=== PATIENT | male | born 2000 | race Caucasian/White ===

== ENCOUNTER 2022-02-12 22:41 | Emergency (ER) | payer MEDICAID, SELFPAY ==
[2022-02-12 22:46] VITALS: BP 152/81; PULSE 86; RESP 18; TEMP 36.8; O2SAT 96; BMI 32.9
--- NOTE | 2022-02-12 22:55 | ED.MALEGU ---
HPI - Male Genitourinary General Time Seen by Provider: 22:56 <Keely Duong MD - Last Filed: 02/12/22 23:10> Date Seen: 02/12/22 <Keely Duong MD - Last Filed: 02/12/22 23:10> Chief complaint: Urogenital Problems, Male <Keely Duong MD - Last Filed: 02/12/22 23:10> Stated complaint: sharp pain <Keely Duong MD - Last Filed: 02/12/22 23:10> Time Seen by Provider: 02/12/22 22:43 <Keely Duong MD - Last Filed: 02/12/22 23:10> Source: patient and RN notes reviewed <Keely Duong MD - Last Filed: 02/12/22 23:10> Mode of arrival: ambulatory <Keely Duong MD - Last Filed: 02/12/22 23:10> Limitations: no limitations <Keely Duong MD - Last Filed: 02/12/22 23:10> History of Present Illness HPI Narrative: Patient is a 21-year-old male coming in with left testicular pain that has been with him all day. It has been quite severe today. He felt a little lightheaded earlier at work but he thinks it was because of the pain. Proceeding today, he had a period where was a little sore for a few days, thought maybe the left testicle was riding a little lower than his right. He has had no fevers or chills. He is sometimes sexually active with his female partner that is here with him. He has never been diagnosed with an STI. He has noted no change in urination, no hematuria. He had a few days were it was not bothering him and notes today the pain really came back more severe. He feels it might be swollen. <Keely Duong MD - Last Filed: 02/12/22 23:10> MD Complaint: testicle pain <Keely Duong MD - Last Filed: 02/12/22 23:10> Related Data Sexually active: Yes <Keely Duong MD - Last Filed: 02/12/22 23:10> Home medications: Home Medications Medication Instructions Recorded Confirmed ibuprofen 02/12/22 sertraline 50 mg tablet mg 02/12/22 <Keely Duong MD - Last Filed: 02/12/22 23:10> Allergies/Adverse reactions: Allergies Allergy/AdvReac Type Severity Reaction Status Date / Time No Known Drug Allergies Allergy Verified 02/12/22 22:49 <Keely Duong MD - Last Filed: 02/12/22 23:10> Review of Systems Status of ROS: Reports: 6 or more systems reviewed and unremarkable except as noted in History and below <Keely Duong MD - Last Filed: 02/12/22 23:10> PFSH PFSH Social History: Social History Smoking Status: Never smoker How often do you have a drink containing alcohol: never AUDIT-C Alcohol total score: 0 Non-prescribed substance use: marijuana (any form) <Keely Duong MD - Last Filed: 02/12/22 23:10> Exam Const: Vital Signs, click to edit/add: Vital Signs - 24 hr 02/12/22 22:46 Temperature 98.3 F Pulse Rate [Left P ulse Oximeter] 86 Respiratory Rate 18 Blood Pressure [Ri ght Upper Arm] 152/81 H Pulse Oximetry 96 Oxygen Delivery Me thod Room Air <Keely Duong MD - Last Filed: 02/12/22 23:10> Vital Signs, click to edit/add: Vital Signs - 24 hr 02/12/22 22:46 Temperature 98.3 F Pulse Rate [Left P ulse Oximeter] 86 Respiratory Rate 18 Blood Pressure [Ri ght Upper Arm] 152/81 H Pulse Oximetry 96 Oxygen Delivery Me thod Room Air <Williams Yadav MD - Last Filed: 02/13/22 07:55> Documenting provider has reviewed patient's vital signs: yes <Keely Duong MD - Last Filed: 02/12/22 23:10> Common normals: no apparent distress, average body habitus, oriented x3, no limitations, healthy appearing, alert and well nourished <Keely Duong MD - Last Filed: 02/12/22 23:10> General appearance: cooperative, comfortable and well kempt <Keely Duong MD - Last Filed: 02/12/22 23:10> HENMT: Common normals: normocephalic, head/scalp atraumatic and hearing grossly normal bilaterally <Keely Duong MD - Last Filed: 02/12/22 23:10> Head and scalp: normocephalic and atraumatic <Keely Duong MD - Last Filed: 02/12/22 23:10> Eye: Common normals: PERRL, EOMs intact bilaterally, conjunctivae normal and no scleral icterus <Keely Duong MD - Last Filed: 02/12/22 23:10> Conjunctiva: conjunctiva(e) normal <Keely Duong MD - Last Filed: 02/12/22 23:10> Pupil: PERRL <Keely Duong MD - Last Filed: 02/12/22 23:10> Resp: Common normals: normal respiratory effort, no retractions, no use of accessory muscles and clear to auscultation bilaterally <Keely Duong MD - Last Filed: 02/12/22 23:10> Auscultation: clear to auscultation bilaterally <Keely Duong MD - Last Filed: 02/12/22 23:10> Cardio: Common normals: regular rate, regular rhythm, S1 normal heart sound, S2 normal heart sound, no gallops, no clicks and no murmurs <Keely Duong MD - Last Filed: 02/12/22 23:10> Rate: regular rate <Keely Duong MD - Last Filed: 02/12/22 23:10> Rhythm: regular rhythm <Keely Duong MD - Last Filed: 02/12/22 23:10> Heart sounds: S1 normal and S2 normal <Keely Duong MD - Last Filed: 02/12/22 23:10> GI: Common normals: Normal to inspection, nondistended, normoactive bowel sounds present, soft to palpation, non-tender, no hepatosplenomegaly and no masses <Keely Duong MD - Last Filed: 02/12/22 23:10> Palpation: soft and no hepatosplenomegaly <Keely Duong MD - Last Filed: 02/12/22 23:10> : Penis: normal penis and circumcised <Keely Duong MD - Last Filed: 02/12/22 23:10> Meatus: meatus normal <Keely Duong MD - Last Filed: 02/12/22 23:10> Scrotum: testes descended bilaterally and tenderness (Very tender left testicle, seems swollen) <Keely Duong MD - Last Filed: 02/12/22 23:10> Other: Left testicle is definitely more enlarged than the right and very much so tender. Does not seem like it is the epididymis but actually the testicle itself that is swollen. Cannot necessarily palpate whether there is a swelling within the testicle or if it is the whole thing that is swollen. Overlying scrotum seems normal. Right testicle is nontender, no masses. No inguinal adenopathy or masses. <Keely Duong MD - Last Filed: 02/12/22 23:10> Neuro: Common normals: oriented x3 <Keely Duong MD - Last Filed: 02/12/22 23:10> Sensorium/orientation: alert <Keely Duong MD - Last Filed: 02/12/22 23:10> Psych: Appearance: well kempt <Keely Duong MD - Last Filed: 02/12/22 23:10> Course Course Hospital Course: We will establish an IV, give him 15 mg IV Toradol and see if that is enough for making him more comfortable prior to scrotal ultrasound. He will get basic labs, will order urine testing including a urinalysis as well as random urine GC and chlamydia. Am doubtful that this is an S TIA. Seems to be more testicular in nature. Ultrasound will help define such things as orchitis or testicular mass. Ultrasound will also rule out such things as an acute early testicular torsion. Received Mr. Nails in handoff at change of shift pending ultrasound evaluation. I did speak with the electrical engineering technologist noting a heterogeneous mass on the left testicle. <Keely Duong MD - Last Filed: 02/12/22 23:10> Reevaluation(s) Reevaluation #1: Mr. Nails remained reasonably comfortable returning time in the emergency department. I did convey results of ultrasound to him <Williams Yadav MD - Last Filed: 02/13/22 07:55> Reevaluation #2: Given contact information for [facility]. We will try to help coordinate in the morning a visit there within the next couple of days <Williams Yadav MD - Last Filed: 02/13/22 07:55> Consultations Consultation #1: Spoke with radiologist Dr. Whitehead who called to obtain further information on Mr. richie garcia circumstance. Apparently there had been some trauma 2 weeks ago when a dog jumped on him. They have a number of large dogs. He did note pain at that time intermittently exacerbated with pressure or walking. Dr. Whitehead's interpretation of the ultrasound noted appearance of hematoma or at least the presence of a 2.4 cm maximal dimension heterogeneous vascular focus in the left mid testicle, cannot exclude mass. Hematoma seems less likely due to presence of vascular flow in this mass. There is a left epididymal head cyst and a small complex left hydrocele which might than be containing blood product. Is recommending soon urology consultation. <Williams Yadav MD - Last Filed: 02/13/22 07:55> Vital Signs Vital signs: Initial Vital Signs Temperature 98.3 F 02/12/22 22:46 Temperature Source Temporal Artery Scan 02/12/22 22:46 Pulse Rate 86 02/12/22 22:46 Respiratory Rate 18 02/12/22 22:46 Blood Pressure 152/81 H 02/12/22 22:46 Blood Pressure Mean 104 10 22:46 Blood Pressure Position Sitting 02/12/22 22:46 Pulse Oximetry 96 02/12/22 22:46 Oxygen Delivery Method 02/12/22 22:46 Vital Signs Temperature 98.3 F 02/12/22 22:46 Pulse Rate 86 02/12/22 22:46 Respiratory Rate 18 02/12/22 22:46 Blood Pressure 152/81 H 02/12/22 22:46 Pulse Oximetry 96 02/12/22 22:46 Oxygen Delivery Method 02/12/22 22:46 Temperature 98.3 F 02/12/22 22:46 Pulse Rate 86 02/12/22 22:46 Respiratory Rate 18 02/12/22 22:46 Blood Pressure 152/81 H 02/12/22 22:46 Pulse Oximetry 96 02/12/22 22:46 Oxygen Delivery Method 02/12/22 22:46 <Keely Duong MD - Last Filed: 02/12/22 23:10> Initial Vital Signs Temperature 98.3 F 02/12/22 22:46 Temperature Source Temporal Artery Scan 02/12/22 22:46 Pulse Rate 86 02/12/22 22:46 Respiratory Rate 18 02/12/22 22:46 Blood Pressure 152/81 H 02/12/22 22:46 Blood Pressure Mean 104 02/12/22 22:46 Blood Pressure Position Sitting 02/12/22 22:46 Pulse Oximetry 96 02/12/22 22:46 Oxygen Delivery Method 02/12/22 22:46 Vital Signs Temperature 98.3 F 02/12/22 22:46 Pulse Rate 86 02/12/22 22:46 Respiratory Rate 18 02/12/22 22:46 Blood Pressure 152/81 H 02/12/22 22:46 Pulse Oximetry 96 02/12/22 22:46 Oxygen Delivery Method 02/12/22 22:46 Temperature 98.3 F 02/12/22 22:46 Pulse Rate 86 02/12/22 22:46 Respiratory Rate 18 02/12/22 22:46 Blood Pressure 152/81 H 02/12/22 22:46 Pulse Oximetry 96 02/12/22 22:46 Oxygen Delivery Method 02/12/22 22:46 <Williams Yadav MD - Last Filed: 02/13/22 07:55> MDM - Male Genitourinary Lab Data Attestation: I reviewed the patient's lab results. <Williams Yadav MD - Last Filed: 02/13/22 07:55> Labs: Lab Results 02/12/22 02/12/22 02/12/22 Range/Units 23:10 23:10 23:20 WBC 14.67 H (4.50-11.00) K/uL RBC 5.48 (4.30-5.90) m/uL Hgb 15.9 (13.5-17.5) gm/dL Hct 47.8 (37.0-53.0) % MCV 87 (80-100) fL MCH 29 (26-34) pg MCHC 33 (32-36) gm/dL RDW Coeff of Jaime 12.7 (11.5-15.5) % Plt Count 306 (140-440) K/uL Neut % (Auto) 67.8 (42.0-72.0) % Lymph % (Auto) 24.6 (20-44) % Tarrant % (Auto) 6.1 (0.0-11.0) % Eos % (Auto) 1.0 (0.0-7.0) % Baso % (Auto) 0.2 (0.0-3.0) % Neut # (Auto) 9.90 H (1.7-7.0) K/uL Lymph # (Auto) 3.60 H (0.90-2.90) K/uL Tarrant # (Auto) 0.90 (0.00-0.90) K/UL Eos # (Auto) 0.10 (0.00-0.50) K/uL Baso # (Auto) 0.00 (0.00-0.30) K/uL Abs Immat Gran (auto) 0.04 (0.00-0.30) K/uL Sodium (135-149) mmol/L Potassium (3.6-5.1) mmol/L Chloride (96-114) mmol/L Carbon Dioxide (20-32) mmol/L BUN (5-24) mg/dL Creatinine (0.5-1.5) mg/dL Estimated Creat Clear Estimated GFR ml/min Glucose (60-115) mg/dL Calcium (8.4-10.6) mg/dL C-Reactive Protein (0.5-1.0) mg/dL Urine Color Yellow (Yellow) Urine Appearance Clear (Clear) Urine pH 6.0 (5.0-8.5) Ur Specific Stratton >= 1.030 (1.000-1.030) Urine Protein Negative (Negative) Urine Glucose (UA) Negative (Negative) Urine Ketones Negative (Negative) Urine Blood Negative (Negative) Urine Nitrite Negative (Negative) Urine Bilirubin Negative (Negative) Urine Urobilinogen 0.2 (0.2-1.0) Ur Leukocyte Esterase Negative (Negative) Urine RBC 0-2 (0-2) Urine WBC 0-2 (0-5) Ur Squamous Epith Cells None (None-Few) Urine Bacteria None (None) C.trachomatis Ampl DNA NOT DETECTED (No Detected) N.gonorrhoeae Ampl DNA NOT DETECTED (No Detected) 02/12/22 Range/Units 23:20 WBC (4.50-11.00) K/uL RBC (4.30-5.90) m/uL Hgb (13.5-17.5) gm/dL Hct (37.0-53.0) % MCV (80-100) fL MCH (26-34) pg MCHC (32-36) gm/dL RDW Coeff of Jaime (11.5-15.5) % Plt Count (140-440) K/uL Neut % (Auto) (42.0-72.0) % Lymph % (Auto) (20-44) % Tarrant % (Auto) (0.0-11.0) % Eos % (Auto) (0.0-7.0) % Baso % (Auto) (0.0-3.0) % Neut # (Auto) (1.7-7.0) K/uL Lymph # (Auto) (0.90-2.90) K/uL Tarrant # (Auto) (0.00-0.90) K/UL Eos # (Auto) (0.00-0.50) K/uL Baso # (Auto) (0.00-0.30) K/uL Abs Immat Gran (auto) (0.00-0.30) K/uL Sodium 142 (135-149) mmol/L Potassium 4.2 (3.6-5.1) mmol/L Chloride 103 (96-114) mmol/L Carbon Dioxide 26 (20-32) mmol/L BUN 16 (5-24) mg/dL Creatinine 0.8 (0.5-1.5) mg/dL Estimated Creat Clear 137.71 Estimated GFR 130 ml/min Glucose 101 (60-115) mg/dL Calcium 10.0 (8.4-10.6) mg/dL C-Reactive Protein 0.8 (0.5-1.0) mg/dL Urine Color (Yellow) Urine Appearance (Clear) Urine pH (5.0-8.5) Ur Specific Strat[place] (1.000-1.030) Urine Protein (Negative) Urine Glucose (UA) (Negative) Urine Ketones (Negative) Urine Blood (Negative) Urine Nitrite (Negative) Urine Bilirubin (Negative) Urine Urobilinogen (0.2-1.0) Ur Leukocyte Esterase (Negative) Urine RBC (0-2) Urine WBC (0-5) Ur Squamous Epith Cells (None-Few) Urine Bacteria (None) C.trachomatis Ampl DNA (No Detected) N.gonorrhoeae Ampl DNA (No Detected) <Keely Duong MD - Last Filed: 02/12/22 23:10> Lab Results 02/12/22 02/12/22 02/12/22 Range/Units 23:10 23:10 23:20 WBC 14.67 H (4.50-11.00) K/uL RBC 5.48 (4.30-5.90) m/uL Hgb 15.9 (13.5-17.5) gm/dL Hct 47.8 (37.0-53.0) % MCV 87 (80-100) fL MCH 29 (26-34) pg MCHC 33 (32-36) gm/dL RDW Coeff of Jaime 12.7 (11.5-15.5) % Plt Count 306 (140-440) K/uL Neut % (Auto) 67.8 (42.0-72.0) % Lymph % (Auto) 24.6 (20-44) % T[place] % (Auto) 6.1 (0.0-11.0) % Eos % (Auto) 1.0 (0.0-7.0) % Baso % (Auto) 0.2 (0.0-3.0) % Neut # (Auto) 9.90 H (1.7-7.0) K/uL Lymph # (Auto) 3.60 H (0.90-2.90) K/uL Tarrant # (Auto) 0.90 (0.00-0.90) K/UL Eos # (Auto) 0.10 (0.00-0.50) K/uL Baso # (Auto) 0.00 (0.00-0.30) K/uL Abs Immat Gran (auto) 0.04 (0.00-0.30) K/uL Sodium (135-149) mmol/L Potassium (3.6-5.1) mmol/L Chloride (96-114) mmol/L Carbon Dioxide (20-32) mmol/L BUN (5-24) mg/dL Creatinine (0.5-1.5) mg/dL Estimated Creat Clear Estimated GFR ml/min Glucose (60-115) mg/dL Calcium (8.4-10.6) mg/dL C-Reactive Protein (0.5-1.0) mg/dL Urine Color Yellow (Yellow) Urine Appearance Clear (Clear) Urine pH 6.0 (5.0-8.5) Ur Specific Strat[place] >= 1.030 (1.000-1.030) Urine Protein Negative (Negative) Urine Glucose (UA) Negative (Negative) Urine Ketones Negative (Negative) Urine Blood Negative (Negative) Urine Nitrite Negative (Negative) Urine Bilirubin Negative (Negative) Urine Urobilinogen 0.2 (0.2-1.0) Ur Leukocyte Esterase Negative (Negative) Urine RBC 0-2 (0-2) Urine WBC 0-2 (0-5) Ur Squamous Epith Cells None (None-Few) Urine Bacteria None (None) C.trachomatis Ampl DNA NOT DETECTED (No Detected) N.gonorrhoeae Ampl DNA NOT DETECTED (No Detected) 02/12/22 Range/Units 23:20 WBC (4.50-11.00) K/uL RBC (4.30-5.90) m/uL Hgb (13.5-17.5) gm/dL Hct (37.0-53.0) % MCV (80-100) fL MCH (26-34) pg MCHC (32-36) gm/dL RDW Coeff of Jaime (11.5-15.5) % Plt Count (140-440) K/uL Neut % (Auto) (42.0-72.0) % Lymph % (Auto) (20-44) % T[place] % (Auto) (0.0-11.0) % Eos % (Auto) (0.0-7.0) % Baso % (Auto) (0.0-3.0) % Neut # (Auto) (1.7-7.0) K/uL Lymph # (Auto) (0.90-2.90) K/uL T[place] # (Auto) (0.00-0.90) K/UL Eos # (Auto) (0.00-0.50) K/uL Baso # (Auto) (0.00-0.30) K/uL Abs Immat Gran (auto) (0.00-0.30) K/uL Sodium 142 (135-149) mmol/L Potassium 4.2 (3.6-5.1) mmol/L Chloride 103 (96-114) mmol/L Carbon Dioxide 26 (20-32) mmol/L BUN 16 (5-24) mg/dL Creatinine 0.8 (0.5-1.5) mg/dL Estimated Creat Clear 137.71 Estimated GFR 130 ml/min Glucose 101 (60-115) mg/dL Calcium 10.0 (8.4-10.6) mg/dL C-Reactive Protein 0.8 (0.5-1.0) mg/dL Urine Color (Yellow) Urine Appearance (Clear) Urine pH (5.0-8.5) Ur Specific Strat[place] (1.000-1.030) Urine Protein (Negative) Urine Glucose (UA) (Negative) Urine Ketones (Negative) Urine Blood (Negative) Urine Nitrite (Negative) Urine Bilirubin (Negative) Urine Urobilinogen (0.2-1.0) Ur Leukocyte Esterase (Negative) Urine RBC (0-2) Urine WBC (0-5) Ur Squamous Epith Cells (None-Few) Urine Bacteria (None) C.trachomatis Ampl DNA (No Detected) N.gonorrhoeae Ampl DNA (No Detected) <Williams Yadav MD - Last Filed: 02/13/22 07:55> Discharge Plan Discharge Clinical Impression: Mass of left testicle, Hydrocele <Keely Duong MD - Last Filed: 02/12/22 23:10> Patient Disposition: Home, Self-Care <Keely Duong MD - Last Filed: 02/12/22 23:10> Condition: Stable <Keely Duong MD - Last Filed: 02/12/22 23:10> Additional Instructions: Avoid traumatizing this area. Wear more snug briefs as you are doing. Ibuprofen or naproxen for pain. Please follow-up with urology within the next few days. Doctors Rikki and Aide with [facility] have been coming to [place]. Contact [facility] for appointment. We can try to help you with that in the morning. <Keely Duong MD - Last Filed: 02/12/22 23:10> Prescriptions: No Action sertraline 50 mg tablet Label Comments: TAKE 1 TABLET BY MOUTH EVERY MORNING. ibuprofen <Keely Duong MD - Last Filed: 02/12/22 23:10> Stand Alone Forms: [facility] Info Instructions <Keely Duong MD - Last Filed: 02/12/22 23:10>
[2022-02-12 23:18] LABS: Appearance Urine Clear (Clear); Bilirubin Urine Negative (Negative); Blood Urine Negative (Negative); Color Urine Yellow (Yellow); Glucose Urine Negative (Negative); Ketones Urine Negative (Negative); Leukocyte Esterase Urine Negative (Negative); Nitrite Urine Negative (Negative); Protein Urine Negative (Negative); Specific Gravity Urine >= 1.030 (1.000-1.030); Urobilinogen Urine 0.2 (0.2-1.0)
[2022-02-12 23:27] LABS: Basophils Percent Auto 0.2 % (0.0-3.0); Hematocrit 47.8 % (37.0-53.0); Hemoglobin* 15.9 gm/dL (13.5-17.5); Immature Granulocytes Abs Auto 0.04 K/uL (0.00-0.30); Lymphocytes Percent Auto 24.6 % (20-44); Mean Corpuscular HGB Conc 33 gm/dL (32-36); Mean Corpuscular Hemoglobin 29 pg (26-34); Mean Corpuscular Volume 87 fL (80-100); Monocytes Percent Auto 6.1 % (0.0-11.0); Neutrophils Percent Auto 67.8 % (42.0-72.0); Platelet Count* 306 K/uL (140-440); RDW Coefficient of Variation % 12.7 % (11.5-15.5); Red Blood Count 5.48 m/uL (4.30-5.90); White Blood Count* 14.67 K/uL (4.50-11.00)
[2022-02-12 23:29] LABS: Slide Review Reflex No
[2022-02-12 23:29] LABS: RBC Urine 0-2 (0-2); WBC Urine 0-2 (0-5)
[2022-02-12] MEDS: KETOROLAC 15 MG/ML inj IVP (23:30)
[2022-02-12 23:40] LABS: Chloride* 103 mmol/L (96-114); Potassium* 4.2 mmol/L (3.6-5.1); Sodium* 142 mmol/L (135-149)
[2022-02-12 23:42] LABS: Creatinine* 0.8 mg/dL (0.5-1.5); Est. Creatinine Clearance* 137.71; Estimated Glomerular Filt Rate 130 ml/min
[2022-02-12 23:43] LABS: Blood Urea Nitrogen* 16 mg/dL (5-24); Carbon Dioxide* 26 mmol/L (20-32)
[2022-02-12 23:44] LABS: Glucose* 101 mg/dL (60-115)
[2022-02-12 23:46] LABS: C Reactive Protein* 0.8 mg/dL (0.5-1.0)
[2022-02-13 00:45] LABS: Chlamydia DNA Amplified* NOT DETECTED (No Detected); GC DNA Amplified* NOT DETECTED (No Detected)
--- NOTE | 2022-02-13 22:59 | CRLHL7_ITS ---
For Patients: As a result of the Cures Act, medical imaging exams and procedure reports are released immediately into your electronic medical record. You may view this report before your referring provider. If you have questions, please contact your health care provider. INDICATION: Left testicular pain COMPARISON: none TECHNIQUE: Castro scale imaging was performed of the scrotum. In addition color Doppler and spectral Doppler analysis was performed of the testes. FINDINGS: The testes demonstrate normal arterial and venous blood flow on color Doppler and spectral Doppler analysis. There is a heterogeneous masslike area within the left testicle measuring 2.2 x 2.3 x 2.4 cm which does not have the appearance of intratesticular hematoma. The right testicle is normal. The right testis measures 3.4 x 2.0 x 2.7 cm in size and the left testis measures 3.7 x 2.5 x 3.0 cm. No varicocele. Normal right epididymis. Small left epididymal head cyst measuring 3 millimeters. Left hydrocele. IMPRESSION: Suspicious masslike area within the left testicle measuring 2.2 x 2.3 x 2.4 cm. This is concerning for neoplasm as it does not have typical characteristics of intratesticular hematoma. No torsion. Left hydrocele and incidental left epididymal head cyst. Urology consultation recommended. Discussed with Dr. Morin at 2:05am on 02/13/[address] Hamida Whitehead. Dictated by Williams Hale MD @ 02/13/2022 9:39:41 AM (Electronically Signed)
== END 2022-02-13 02:45 | disposition home or self-care (01) ==
PROVIDERS: Family Medicine; Emergency Provider Family Medicine
DX: N50.89 Other specified disorders of the male genital organs (principal); N43.3 Hydrocele, unspecified; N50.3 Cyst of epididymis
CPT/HCPCS: 36415; 76870; 80048; 81001; 85025; 86140; 87491; 87591; 93325; 93976; 96374; 99284; J1885

== ENCOUNTER 2022-04-11 09:21 | Day surgery (SDC) | payer MEDICAID, SELFPAY ==
[2022-04-11] MEDS: SODIUM CHLORIDE 0.9 % (FLUSH) 10 ML SYRINGE IVF (09:35)
[2022-04-11] MEDS: LACTATED RINGERS 1000 ML 1,000 ML 100 ML IV (09:35)
[2022-04-11 09:40] VITALS: BP 128/83; PULSE 100; RESP 18; TEMP 36.6; O2SAT 94; BMI 32.5
--- NOTE | 2022-04-11 09:44 | SUR.PREOP ---
Visualized patients home covid test, results negative.
[2022-04-11] MEDS: CEFAZOLIN 1 GM inj IVP (10:00)
--- NOTE | 2022-04-11 10:04 | PM.GSPRC ---
Operative Note Date of procedure: 04/11/22 Type of Procedure: 1. Right internal jugular Port-A-Cath placement with ultrasound and fluoroscopy guidance. Procedure Description: After discussing the risks and benefits of the procedure, the patient signed informed consent.? The operative site was marked and the patient was brought to the operating room and placed on the operating table in supine position.? Care was taken to pad the patient's pressure points.?? The patient was then sedated by anesthesia.?? The operative site was then prepped and draped in the usual sterile fashion.? A time-out was then performed. Ultrasound was brought on to the field and right internal jugular vein was assessed. This was found to be large and easily compressible. The base of the neck directly overlying the internal jugular vein was then anesthetized with 1% lidocaine and 0.25% Marcaine mixture, and an introducer needle was inserted into the internal jugular vein using ultrasound guidance. Entry into the vein was confirmed by the presence of dark, nonpulsatile blood. A guide wire was advanced through the needle. The introducer needle was removed, leaving the wire in place. Fluoroscopy was brought onto the field and used to confirm the passage of the wire through the superior vena cava and into the inferior vena cava. Lidocaine was then used to infiltrate the port skin site, along with the proposed tunneling tract. A 3 cm incision was made at the site of the port pocket and subcutaneous tissue was dissected down using electrocautery. Subcutaneous pocket was created with blunt dissection and electrocautery. The catheter was advanced through the subcutaneous tissue using a tunneling trocar, exiting the incision at the base of the neck. The trocar was then disconnected. Fluoroscopy was again brought on to the field and the internal jugular vein and adjacent subcutaneous tissue was dilated with a pre-split introducer sheath in place. The wire was removed and the catheter was inserted into the introducer sheath. As the catheter was advanced, the sheath was split and divided, removing the sheath as the catheter was advanced into place. Fluoroscopy was again brought on to the field and the catheter position was examined. The entire course of the catheter was then viewed, and catheter was pulled back under direct visualization to ensure that the tip is in the SVC. The port was connected to the catheter tip and placed into previously created pocket. Prolene was used to place anchoring port sutures and the port was then secured in the pocket. The flow through the catheter was checked with a syringe, and found to be excellent. The incision at the base of the neck was then closed with a single interrupted 4-0 monocryl stitch and dressed with a Steri-Strip and a sterile bandage. Subdermal layer was re-approximated with interrupted 3-0 vicryl stitches and skin over the port was closed with 4-0 monocryl using subcuticular stitch. Carr needle was inserted through the skin into the port and the port was flushed with heparinized saline. The needle was then removed. Steri strips, sterile 2x2 and Tegaderm was applied over the incision. The patient was then roused and brought to same day surgery in satisfactory condition. Sponge and needle counts were correct at the end of the procedure. Post procedure CXR was ordered to be done in same day surgery. Findings: Easily compressible right internal jugular vein. Anesthesia: MAC and local Surgeon: Liban Barber MD Estimated blood loss (mL): 5 Condition: stable Disposition: same day
[2022-04-11] MEDS: BUPIVACAINE 0.25% 30 ML INJECTION (10:21)
[2022-04-11] MEDS: 0.9% SODIUM CHL 50 ML VIAL INJECTION (10:28)
[2022-04-11] MEDS: HEPARIN 500 UNIT/5 ML SYRINGE IVF (10:30)
--- NOTE | 2022-04-11 10:45 | CRLHL7_ITS ---
For Patients: As a result of the Cures Act, medical imaging exams and procedure reports are released immediately into your electronic medical record. You may view this report before your referring provider. If you have questions, please contact your health care provider. Indication: Port-A-Cath placement. Technique: Three fluoroscopic images of the chest. Fluoroscopic time 58.5 seconds. IMPRESSION: Fluoroscopic guidance for Port-A-Cath placement. Dictated by Williams Hale MD @ 04/11/2022 11:10:17 AM (Electronically Signed)
--- NOTE | 2022-04-11 10:48 | W.ANESCHARGE ---
Anesthesia Charges Start Date/Time Anesthesia Start Date: 04/11/22 Anesthesia Start Time: 09:55 Stop Date/Time Anesthesia Stop Date: 04/11/22 Anesthesia Stop Time: 10:49 Summary Emergency: No
[2022-04-11 10:53] VITALS: BP 132/64; PULSE 100; RESP 16; TEMP 36.4; O2SAT 95
--- NOTE | 2022-04-11 10:54 | PM.GSCN ---
History of Present Illness Consult details Date Seen: 04/11/22 Consult date: 04/11/22 Narrative: 21-year-old male was recently diagnosed with left testicular cancer. Patient underwent left orchiectomy. He was seen by Medical Oncology and chemotherapy treatment was recommended. He presents for a Port-A-Cath placement. Patient denies any procedures on his neck. Patient had I&D of pilonidal cyst abscess 1 week ago. Patient had 2 previous surgeries for excision of pilonidal cyst with now recent recurrence. His mom has been doing wet to dry dressing changes to his open wound. The dressing changes are done daily and they noticed bloody drainage from the wound. He still continues to have pain at his pilonidal cyst incision. He denies any fevers. His orchiectomy incision is healing well. Review of Systems Narrative: General: no fevers HENT: no problems swallowing CV: no shortness of breath Resp: no cough GI: No nausea, vomiting, abdominal pain : no dysuria, no increased urinary frequency, no hematuria Skin: no new rashes Musculoskeletal: no back pain Neuro: no muscle weakness Psyche: depression and anxiety [facility] Medical History (Updated 04/11/22 @ 10:58 by Liban Barber MD) Anxiety Depression Malignant neoplasm of descended left testis Pilonidal abscess Surgical History (Updated 04/11/22 @ 10:58 by Liban Barber MD) History of excision of pilonidal cyst History of orchiectomy History of tympanostomy Social History Smoking Status: Never smoker How often do you have a drink containing alcohol: never AUDIT-C Alcohol total score: 0 Non-prescribed substance use: marijuana (any form) Caffeine: No Meds Home Medications and Allergies Home Medications Medication Instructions Recorded Confirmed Type ibuprofen 02/12/22 History sertraline 50 mg tablet mg 02/12/22 History dexamethasone 4 mg tablet 4 mg PO DAILY 04/10/22 04/11/22 History olanzapine 5 mg tablet (Zyprexa) 5 mg PO DAILY 04/10/22 04/11/22 History oxycodone 5 mg tablet 5 mg PO DAILY 04/10/22 04/11/22 History prochlorperazine maleate 10 mg 10 mg PO DAILY 04/10/22 04/11/22 History tablet (Compazine) sertraline 50 mg tablet 50 mg PO DAILY 04/10/22 04/11/22 History Allergies Allergy/AdvReac Type Severity Reaction Status Date / Time clavulanic acid Allergy Verified 04/11/22 09:45 Exam Narrative: Exam Narrative: General appearance: Alert, cooperative, and in no distress Neck: No surgical incisions and no masses noted. Pulmonary: Chest symmetric, lungs clear bilaterally Cardiovascular Heart: Regular rate and rhythm, S1, S2, no murmurs/rubs/gallops Gastrointestinal Abdominal: not distended, left inguinal incision is healing well with no surrounding erythema. 1.5 cm inferior to the surgical incision there is a pustule noted. There is no cellulitis. Back: In the superior intergluteal cleft there is a large open wound that is approximately measuring 12 x 4 cm. It is approximately 3 cm deep. There is bloody granulation tissue at the base of the wound. This was repacked with moist gauze today and covered with ABD pad. There is no surrounding erythema and no purulent drainage. Skin: Normal skin color, texture, and turgor. No rashes or lesions. Psychiatric: Alert, cooperative, normal affect. Const: Vital Signs, click to edit/add: Vital Signs - 24 hr 04/11/22 09:40 Temperature 97.9 F Pulse Rate 100 Respiratory Rate 18 Blood Pressure 128/83 Pulse Oximetry 94 Oxygen Delivery Me thod Room Air Results Labs Labs: All other labs normal. Assessment and Plan Assessment and plan (1) Testicular cancer: Status: Acute Plan 21-year-old male with stage II left testicular cancer s/p left orchiectomy presents for Port-A-Cath placement. I discussed with the patient and his mom the procedure. The risks associated with procedure including infection, bleeding, and pneumothorax were also discussed with the patient. He agreed to proceed. Patient's pilonidal cyst open wound is clean with no signs of infection. I think it is reasonable to proceed with Port-A-Cath placement. The pilonidal cyst wound was repacked today. I recommended to go to our wound clinic at the [facility] for wound cares. Patient will consider that.
[2022-04-11 11:00] VITALS: BP 121/62; PULSE 86; RESP 16; O2SAT 95
--- NOTE | 2022-04-11 11:02 | W.ANESCHARGE ---
Anesthesia Charges Start Date/Time Anesthesia Start Date: 04/11/22 Anesthesia Start Time: 09:55 Stop Date/Time Anesthesia Stop Date: 04/11/22 Anesthesia Stop Time: 10:49 Summary Emergency: No
--- NOTE | 2022-04-11 11:03 | CRLHL7_ITS ---
For Patients: As a result of the Century Cures Act, medical imaging exams and procedure reports are released immediately into your electronic medical record. You may view this report before your referring provider. If you have questions, please contact your health care provider. INDICATION: POST PORT CATH PLACEMENT TECHNIQUE: Chest 1 view COMPARISON: None FINDINGS: Right-sided Port-A-Cath is present with the tip in the lower SVC. No pneumothorax. No pleural effusion. IMPRESSION: Port-A-Cath placement without pneumothorax. Dictated by Williams Hale MD @ 04/11/2022 11:44:47 AM (Electronically Signed)
[2022-04-11 11:15] VITALS: BP 134/78; PULSE 81; RESP 16; O2SAT 95
[2022-04-11 11:30] VITALS: BP 135/70; PULSE 79; RESP 16; O2SAT 96
== END 2022-04-11 11:46 | disposition home or self-care (01) ==
PROVIDERS: PCP Physician Assistant; Visit Provider Surgery
PROC: (CPT 36561; principal; 2022-04-11 10:45)
DX: Z45.2 Encounter for adjustment and management of vascular access device (principal); C62.92 Malignant neoplasm of left testis, unspecified whether descended or undescended
CPT/HCPCS: 36561; 00532; 71045; C1788; J0690; J1100; J1642; J1885; J2250; J2405; J2704; J3010; J3490; J7120

== ENCOUNTER 2022-04-21 05:44 | Emergency (ER) | payer MEDICAID, SELFPAY ==
[2022-04-21 05:57] VITALS: BP 157/85; PULSE 84; RESP 18; TEMP 36.8; O2SAT 99; BMI 32.6
--- NOTE | 2022-04-21 06:27 | CRLHL7_ITS ---
For Patients: As a result of the Century Cures Act, medical imaging exams and procedure reports are released immediately into your electronic medical record. You may view this report before your referring provider. If you have questions, please contact your health care provider. INDICATION: Abdominal pain COMPARISON: None TECHNIQUE: CT examination of the abdomen and pelvis was performed following the uneventful intravenous administration of 100 cc of Isovue 370. Thin section axial images were obtained from the lung bases through the pubic symphysis. Oral contrast was not administered. Please note that all CT scans at this facility use dose modulation, iterative reconstruction, and/or weight-based dosing when appropriate to reduce radiation dose to as low as reasonably achievable. FINDINGS: LUNG BASES: The lung bases as visualized appear normal.The heart size is normal at the lung bases. LIVER/BILIARY SYSTEM:The liver is normal in size and configuration. There is no focal mass and there is no intra- or extra hepatic biliary ductal dilatation.The gall bladder appears normal. ADRENALS: Normal KIDNEYS, URETERS and BLADDER:The kidneys appear normal. No visible mass, calculus or hydronephrosis. The ureters and bladder as visualized appear normal. SPLEEN:Normal appearance. PANCREAS: Appears normal. RETROPERITONEUM and MESENTERY: Large lymph in the mid left periaortic location measuring 3.2 centimeters. This may be centrally necrotic. There are also prominent left inguinal lymph nodes. It appears as if the patient has had a recent mild orchiectomy. The left inguinal lymph nodes are likely reactive to the surgery. The retroperitoneal lymph node is suspicious for metastatic disease. GASTROINTESTINAL SYSTEM: There is thickening of the wall of the descending colon and sigmoid though I believe this is due to collapsed state rather than colitis. Colon is otherwise unremarkable. The appendix is well seen and appears. No bowel obstruction. PELVIS: No free fluid, mass or pelvic lymphadenopathy. OSSEOUS STRUCTURES and ABDOMINAL WALL: There is an age-appropriate appearance of the osseous structures.No significant abdominal wall defect. OTHER: No free fluid or free air. I discussed this case with Dr. Williams Berry at 7:35 a.m. on April 21, 2022 IMPRESSION: 1. Solitary large left mid periaortic lymph node measures 3.2 centimeters likely centrally necrotic. This is suspicious for metastatic disease related to the patient`s left testicular neoplasm. 2. Prominent left inguinal lymph nodes likely reactive to recent orchiectomy. 3. The examination is otherwise overall unremarkable. Please note that all CT scans at this facility use dose modulation, iterative reconstruction, and/or weight-based dosing when appropriate to reduce radiation dose to as low as reasonably achievable. Dictated by Jacobo Sales MD @ 04/21/2022 7:38:31 AM (Electronically Signed)
[2022-04-21 06:45] VITALS: O2SAT 99
[2022-04-21 06:52] LABS: Basophils Percent Auto 0.3 % (0.0-3.0); Eosinophils Percent Auto 1.2 % (0.0-7.0); Hematocrit 44.1 % (37.0-53.0); Hemoglobin* 14.7 gm/dL (13.5-17.5); Immature Granulocytes Pct Auto 0.2 %; Lymphocytes Percent Auto 22.8 % (20-44); Mean Corpuscular HGB Conc 33 gm/dL (32-36); Mean Corpuscular Hemoglobin 29 pg (26-34); Mean Corpuscular Volume 86 fL (80-100); Neutrophils Percent Auto 68.5 % (42.0-72.0); Platelet Count* 272 K/uL (140-440); Red Blood Count 5.12 m/uL (4.30-5.90); White Blood Count* 11.52 K/uL (4.50-11.00)
[2022-04-21 06:59] LABS: Slide Review Reflex No
[2022-04-21 07:09] LABS: Chloride* 105 mmol/L (96-114)
[2022-04-21 07:10] LABS: Sodium* 141 mmol/L (135-149)
[2022-04-21 07:13] LABS: Alanine Aminotransferase* 65 U/L (4-50); Alkaline Phosphatase* 78 U/L (40-150); Aspartate Amino Transferase* 27 U/L (12-35); Bilirubin Direct* 0.2 mg/dL (0.0-0.5); Bilirubin Total* 0.7 mg/dL (0.1-1.5); Blood Urea Nitrogen* 12 mg/dL (5-24); Calcium* 9.7 mg/dL (8.4-10.6); Carbon Dioxide* 25 mmol/L (20-32); Creatinine* 0.7 mg/dL (0.5-1.5); Est. Creatinine Clearance* 157.38; Estimated Glomerular Filt Rate 135 ml/min; Glucose* 97 mg/dL (60-115); Total Protein* 8.2 g/dL (6.0-8.3)
[2022-04-21 07:30] VITALS: BP 132/68; PULSE 86; RESP 20; TEMP 36.8; O2SAT 96
--- NOTE | 2022-04-21 15:52 | ED_ITS ---
HPI - General Adult General Date Seen: 04/21/22 Chief complaint: Abdominal Pain Stated complaint: Adominal pain Time Seen by Provider: 04/21/22 05:50 Source: patient Mode of arrival: ambulatory Limitations: no limitations History of Present Illness HPI narrative: Patient is a 21-year-old male recently diagnosed with testicular cancer. He has had an orchiectomy and will be starting chemotherapy as it has metastasized to regional lymph nodes. He has been having some difficulty with constipation since using oxycodone after his surgery. Last evening he took Dulcolax and a couple hours later began having abdominal cramps. He has had some nausea and vomiting. He has had small bowel movement as recently as yesterday. He has been eating and drinking okay. No fevers or chills. Related Data Home Medications Medication Instructions Recorded Confirmed dexamethasone 4 mg tablet 4 mg PO DAILY 04/10/22 04/21/22 olanzapine 5 mg tablet (Zyprexa) 5 mg PO DAILY 04/10/22 04/21/22 oxycodone 5 mg tablet 5 mg PO DAILY 04/10/22 04/21/22 prochlorperazine maleate 10 mg 10 mg PO DAILY 04/10/22 04/21/22 tablet (Compazine) sertraline 50 mg tablet 50 mg PO DAILY 04/10/22 04/21/22 Allergies Allergy/AdvReac Type Severity Reaction Status Date / Time clavulanic acid Allergy Mild Hives Verified 04/21/22 06:41 Review of Systems Narrative: Review of systems is outlined above otherwise noted to be negative. [facility] Medical History (Updated 04/21/22 @ 07:48 by Williams Berry MD) Anxiety Depression Malignant neoplasm of descended left testis Pilonidal abscess Surgical History History of excision of pilonidal cyst History of orchiectomy History of tympanostomy Social History Smoking Status: Never smoker How often do you have a drink containing alcohol: never AUDIT-C Alcohol total score: 0 Non-prescribed substance use: marijuana (any form) Caffeine: No Exam Narrative: Exam Narrative: Vitals noted. HEENT: Conjunctiva clear. Neck is supple without adenopathy, thyromegaly, carotid bruit. Lungs: Clear to auscultation in all faustin. No wheezes, rales, rhonchi. Heart: Regular rate and rhythm without murmur. Abdomen: Soft with mild diffuse tenderness. No guarding, rigidity, rebound. Bowel sounds are normal. No palpable masses. Extremities: No cyanosis or edema. Good distal pulses. Skin: No abnormalities noted of the exposed skin. Neurologic: Awake, alert, fully oriented. Neurologic exam is nonfocal. Const: Vital Signs, click to edit/add: Vital Signs - 24 hr 04/21/22 05:57 04/21/22 06:45 04/21/22 07:30 Temperature 98.2 F 98.3 F Pulse Rate [Right Pulse Oximeter] 84 86 Respiratory Rate 18 20 Blood Pressure [Ri ght Upper Arm] 157/85 H 132/68 Pulse Oximetry 99 99 96 Oxygen Delivery Me thod Room Air Room Air Course Course Hospital Course: Patient was seen and examined. With his recent history of malignancy opted to do labs and a CT of his abdomen and pelvis with IV contrast. He declines a need for pain medication. Reevaluation(s) Reevaluation #1: His labs have all returned with normal results. CT of the abdomen and pelvis with IV contrast shows necrotic lymph node likely related to metastatic disease. He has some reactive lymph nodes likely related to his recent surgery. No other worrisome findings. These results were shared with the patient who is reassured. Vital Signs Vital signs: Initial Vital Signs Temperature 98.2 F 04/21/22 05:57 Temperature Source Temporal Artery Scan 04/21/22 05:57 Pulse Rate 84 04/21/22 05:57 Respiratory Rate 18 04/21/22 05:57 Blood Pressure 157/85 H 04/21/22 05:57 Blood Pressure Mean 109 04/21/22 05:57 Blood Pressure Position Sitting 04/21/22 05:57 Pulse Oximetry 99 04/21/22 05:57 Oxygen Delivery Method 04/21/22 05:57 Vital Signs Temperature 98.2 F 04/21/22 05:57 Pulse Rate 84 04/21/22 05:57 Respiratory Rate 18 04/21/22 05:57 Blood Pressure 157/85 H 04/21/22 05:57 Pulse Oximetry 99 04/21/22 05:57 Oxygen Delivery Method 04/21/22 05:57 Temperature 98.3 F 04/21/22 07:30 Pulse Rate 86 04/21/22 07:30 Respiratory Rate 20 04/21/22 07:30 Blood Pressure 132/68 04/21/22 07:30 Pulse Oximetry 96 04/21/22 07:30 Oxygen Delivery Method 04/21/22 07:30 Medical Decision Making Lab Data Labs: Lab Results 04/21/22 04/21/22 Range/Units 06:45 06:45 WBC 11.52 H (4.50-11.00) K/uL RBC 5.12 (4.30-5.90) m/uL Hgb 14.7 (13.5-17.5) gm/dL Hct 44.1 (37.0-53.0) % MCV 86 (80-100) fL MCH 29 (26-34) pg MCHC 33 (32-36) gm/dL RDW Coeff of Jaime 13.0 (11.5-15.5) % Plt Count 272 (140-440) K/uL Neut % (Auto) 68.5 (42.0-72.0) % Lymph % (Auto) 22.8 (20-44) % [place] % (Auto) 7.0 (0.0-11.0) % Eos % (Auto) 1.2 (0.0-7.0) % Baso % (Auto) 0.3 (0.0-3.0) % Neut # (Auto) 7.90 H (1.7-7.0) K/uL Lymph # (Auto) 2.60 (0.90-2.90) K/uL [place] # (Auto) 0.80 (0.00-0.90) K/UL Eos # (Auto) 0.10 (0.00-0.50) K/uL Baso # (Auto) 0.00 (0.00-0.30) K/uL Sodium 141 (135-149) mmol/L Potassium 4.0 (3.6-5.1) mmol/L Chloride 105 (96-114) mmol/L Carbon Dioxide 25 (20-32) mmol/L BUN 12 (5-24) mg/dL Creatinine 0.7 (0.5-1.5) mg/dL Estimated Creat Clear 157.38 Estimated GFR 135 ml/min Glucose 97 (60-115) mg/dL Calcium 9.7 (8.4-10.6) mg/dL Total Bilirubin 0.7 (0.1-1.5) mg/dL Direct Bilirubin 0.2 (0.0-0.5) mg/dL AST 27 (12-35) U/L ALT 65 H (4-50) U/L Alkaline Phosphatase 78 (40-150) U/L Total Protein 8.2 (6.0-8.3) g/dL Albumin 5.0 (3.3-5.0) g/dL Discharge Plan Discharge Clinical Impression: Testicular cancer, Constipation Patient Disposition: Home, Self-Care Condition: Stable Additional Instructions: Push fluids, high-fiber diet. Continue daily stool softener. Benefiber 2 tsp daily. MiraLax one cap full daily as needed for constipation. Tylenol or ibuprofen for pain. Follow-up if symptoms are not improving. Prescriptions: No Action dexamethasone 4 mg tablet 4 mg PO DAILY Hold Instructions: per oncology MD olanzapine [Zyprexa] 5 mg tablet 5 mg PO DAILY Hold Instructions: per oncology MD oxycodone 5 mg tablet 5 mg PO DAILY prochlorperazine maleate [Compazine] 10 mg tablet 10 mg PO DAILY Hold Instructions: per oncology MD sertraline 50 mg tablet 50 mg PO DAILY Follow Up/Referrals: Francesca Crane PA [Primary Care Provider] - Stand Alone Forms: [employer] Info Instructions
== END 2022-04-21 08:16 | disposition home or self-care (01) ==
PROVIDERS: Emergency Provider Family Medicine; PCP Physician Assistant
DX: C62.90 Malignant neoplasm of unspecified testis, unspecified whether descended or undescended (principal); K59.00 Constipation, unspecified
CPT/HCPCS: 36415; 74177; 80048; 80076; 85025; 94761; 99282; 99283; 99284; Q9967

== ENCOUNTER 2022-05-18 11:57 | Emergency (ER) | payer MEDICAID, SELFPAY ==
[2022-05-18] VITALS (21 sets, daily range): BP systolic 112–154; BP diastolic 65–87; PULSE 95–118; RESP 18; TEMP 37.2; O2SAT 94–98; BMI 35.5
--- NOTE | 2022-05-18 12:44 | CRLHL7_ITS ---
For Patients: As a result of the Cures Act, medical imaging exams and procedure reports are released immediately into your electronic medical record. You may view this report before your referring provider. If you have questions, please contact your health care provider. Indication: Shortness of breath Comparison: Single view chest April 11, 2022 Technique: PA and lateral views of the chest Findings: Stable position of right-sided Port-A-Cath. There is mild central bronchial thickening without dense consolidation, effusion or pneumothorax. Stable cardiac silhouette. The bony thorax is grossly intact. Impression: Mild central bronchial thickening without dense consolidation. Dictated by Uriel Barth MD @ 05/18/2022 1:20:18 PM (Electronically Signed)
[2022-05-18] MEDS: LORazepam 2 MG/ML inj 1 MG IVP (12:58)
[2022-05-18] MEDS: 0.9 % SODIUM CHLORIDE 1000 ml 1,000 ML IV ×2 (13:00→16:06)
[2022-05-18 13:05] LABS: Basophils Percent Auto 0.3 % (0.0-3.0); Eosinophils Percent Auto 0.3 % (0.0-7.0); Hematocrit 36.3 % (37.0-53.0); Hemoglobin* 12.1 gm/dL (13.5-17.5); Immature Granulocytes Pct Auto 0.3 %; Lymphocytes Percent Auto 23.1 % (20-44); Mean Corpuscular HGB Conc 33 gm/dL (32-36); Mean Corpuscular Hemoglobin 29 pg (26-34); Mean Corpuscular Volume 86 fL (80-100); Monocytes Percent Auto 3.9 % (0.0-11.0); Neutrophils Percent Auto 72.1 % (42.0-72.0); Platelet Count* 195 K/uL (140-440); RDW Coefficient of Variation % 12.6 % (11.5-15.5); Red Blood Count 4.23 m/uL (4.30-5.90); White Blood Count* 3.55 K/uL (4.50-11.00)
[2022-05-18 13:10] LABS: Slide Review Reflex No
[2022-05-18 13:18] LABS: Albumin* 4.4 g/dL (3.3-5.0); Chloride* 102 mmol/L (96-114); Sodium* 135 mmol/L (135-149)
[2022-05-18 13:19] LABS: Potassium* 4.3 mmol/L (3.6-5.1)
[2022-05-18 13:21] LABS: Aspartate Amino Transferase* 21 U/L (12-35); Bilirubin Direct* 0.2 mg/dL (0.0-0.5); Bilirubin Total* 0.3 mg/dL (0.1-1.5); Carbon Dioxide* 25 mmol/L (20-32); Creatinine* 0.6 mg/dL (0.5-1.5); Est. Creatinine Clearance* 177.22; Estimated Glomerular Filt Rate 142 ml/min; Total Protein* 7.4 g/dL (6.0-8.3)
[2022-05-18 13:22] LABS: Alanine Aminotransferase* 44 U/L (4-50); Alkaline Phosphatase* 73 U/L (40-150); Blood Urea Nitrogen* 16 mg/dL (5-24); Calcium* 9.3 mg/dL (8.4-10.6); Glucose* 104 mg/dL (60-115)
[2022-05-18 13:24] LABS: C Reactive Protein* 3.7 mg/dL (0.5-1.0); D Dimer Quantitative* 0.85 ug/ml (0.00-0.50)
--- NOTE | 2022-05-18 13:26 | ED.NURSE ---
Pt states he is having heartburn and asks if he may take his Baclofen that he has with him. Per , advises against using Baclofen for heartburn but asks pt if he would like GI cocktail. Pt states he would like to try GI cocktail.
[2022-05-18] MEDS: GI COCKTAIL (VISC LIDO/ANTACID) 30 ML PO (13:33)
[2022-05-18 13:44] LABS: PCR FLU A Negative PCR FLU A (Negative); PCR FLU B Negative PCR FLU B (Negative); PCR RSV Negative PCR RSV (Negative)
[2022-05-18 13:45] LABS: SARS PCR* Negative SARS-CoV-2 (Negative)
--- NOTE | 2022-05-18 13:56 | ED_ITS ---
HPI - General Adult General Date Seen: 05/18/22 Chief complaint: Arrhythmia/Palpitations Stated complaint: Insomnia, bloating, on chemo Time Seen by Provider: 05/18/22 12:33 Source: patient and family Mode of arrival: ambulatory Limitations: no limitations History of Present Illness HPI narrative: Patient is a delightful 21-year-old gentleman who is undergoing treatment for testicular cancer, who presents here with the above complaints, he also feels there is an element of anxiety associated with this as he does have insomnia and the inability to sleep, he called his oncology provider who told him to come to the ER for blood work but did not tell him which blood work to get. He tells me struggles with the constipation on off and has been to this emergency room also in the past. [place] he almost had a panic attack earlier today with his heart racing, but was able to talk himself out of it, is here with his mother, she is very loving, and realistic. No personal history of heart disease in the past, denies any chest pain when moving around, is appetites been good he does not have significant weight loss. From the previous notes I can see that he has had an orchiectomy, he has a port noted and he did have some positive nodes noted on both the CT, and surgery. Related Data Home Medications Medication Instructions Recorded Confirmed dexamethasone 4 mg tablet 4 mg PO DAILY 04/10/22 04/21/22 olanzapine 5 mg tablet (Zyprexa) 5 mg PO DAILY 04/10/22 04/21/22 oxycodone 5 mg tablet 5 mg PO DAILY 04/10/22 04/21/22 prochlorperazine maleate 10 mg 10 mg PO DAILY 04/10/22 04/21/22 tablet (Compazine) sertraline 50 mg tablet 50 mg PO DAILY 04/10/22 04/21/22 baclofen 10 mg tablet 10 mg PO DAILY 05/18/22 05/18/22 polyethylene glycol 3350 17 17 g PO DAILY PRN constipation 05/18/22 05/18/22 gram/dose oral powder (Miralax) sennosides 8.6 mg-docusate sodium 2 tab-cap PO BID PRN 05/18/22 05/18/22 50 mg tablet (Stimulant Laxative Plus) sertraline 100 mg tablet 100 mg PO DAILY 05/18/22 05/18/22 Allergies Allergy/AdvReac Type Severity Reaction Status Date / Time clavulanic acid Allergy Mild Hives Verified 04/21/22 06:41 Review of Systems Status of ROS: Reports: 10 or more systems reviewed and unremarkable except as noted in History and below [facility] Medical History Anxiety Depression Malignant neoplasm of descended left testis Pilonidal abscess Surgical History History of excision of pilonidal cyst History of orchiectomy History of tympanostomy Social History Smoking Status: Never smoker How often do you have a drink containing alcohol: never AUDIT-C Alcohol total score: 0 Non-prescribed substance use: former substance user and marijuana (any form) Non-prescribed substance use details: stopped when diagnosed with cancer Caffeine: No Exam Narrative: Exam Narrative: Patient is speaking normally, no problem with slurring words, oriented x3. Head eyes ears nose and throat exam show equal pupils, no scleral icterus, extraocular muscles are normal, no facial droop, speech is normal, trachea normal and midline. Thyroid normal midline palpable not enlarged. Chest shows symmetrical rise bilaterally, normal auscultation with no wheezes, no increased work of breathing, no overt bruising or lesions seen, no tenderness is noted on auscultation. Heart sounds normal with no S3-S4 no murmurs clicks or gallops. Abdomen shows no obvious masses or hepatosplenomegaly, no organomegaly, bowel sounds are normal in all quadrants. No tenderness is noted also in all quadrants. Upper and lower extremities show normal power, normal range of motion, pulses are normal, sensations normal, fine motor movements are normal, pelvis is stable to rocking. Cervical spine shows normal range of motion, and palpably not tender. Thoracic spine shows normal range of motion, and palpably not tender, lumbar spine shows no tenderness to palpation percussion and is otherwise normal range of motion. Skin shows no rashes, petechiae or eccymosis. Const: Vital Signs, click to edit/add: Vital Signs - 24 hr 05/18/22 12:13 05/18/22 13:18 Temperature 99.0 F Pulse Rate 108 H Pulse Rate [Pulse Oximeter] 112 H Respiratory Rate 18 Blood Pressure [Ri ght Upper Arm] 154/87 H Pulse Oximetry 97 97 Oxygen Delivery Me thod Room Air Documenting provider has reviewed patient's vital signs: yes Course Course Hospital Course: I discussed with the mom and the patient, he is on a number of a chem otherapeutic agents that can cause some issues, including the cisplatin and bleomycin his 3rd medication I am not as familiar with. Would recommend a workup for this including fluids Ativan, he would like a GI cocktail, which I do not think is unreasonable. Reevaluation(s) Reevaluation #1: Patient is doing better went back in and discussed with him the findings of the normal chest CT which showed no evidence of embolus or masses suggestive of testicular cancer. I think it would be reasonable at this time. To let him go home after his fluids, and take some Ativan for this. Follow-up with primary care in the next week or so for other treatments, as I explained to them that Ativan is not a long-term treatment Time: 16:43 Vital Signs Vital signs: Initial Vital Signs Temperature 99.0 F 05/18/22 12:13 Temperature Source Temporal Artery Scan 05/18/22 12:13 Pulse Rate 112 H 05/18/22 12:13 Pulse Rhythm 05/18/22 12:13 Respiratory Rate 18 05/18/22 12:13 Blood Pressure 154/87 H 05/18/22 12:13 Blood Pressure Mean 109 05/18/22 12:13 Blood Pressure Position Sitting 05/18/22 12:13 Pulse Oximetry 97 05/18/22 12:13 Oxygen Delivery Method 05/18/22 12:13 Vital Signs Temperature 99.0 F 05/18/22 12:13 Pulse Rate 112 H 05/18/22 12:13 Respiratory Rate 18 05/18/22 12:13 Blood Pressure 154/87 H 05/18/22 12:13 Pulse Oximetry 97 05/18/22 12:13 Oxygen Delivery Method 05/18/22 12:13 Temperature 99.0 F 05/18/22 12:13 Pulse Rate 108 H 05/18/22 13:18 Respiratory Rate 18 05/18/22 12:13 Blood Pressure 154/87 H 05/18/22 12:13 Pulse Oximetry 97 05/18/22 13:18 Oxygen Delivery Method 05/18/22 12:13 Medical Decision Making MDM Narrative Medical decision making narrative: During the evaluation of this patient I considered multiple differential diagnosis is. The life-threatening differential diagnosis include coronary disease/NC, pulmonary embolism, pneumothorax, pneumonia, and aortic dissection. Other differential diagnosis included but were not limited to pericarditis, myocarditis, chest wall pain, GERD, esophageal rupture, rib fracture contusion, pleurisy, as well as other etiologies. Lab Data Labs: Lab Results 05/18/22 05/18/22 05/18/22 Range/Units 12:50 12:50 12:50 WBC 3.55 L (4.50-11.00) K/uL RBC 4.23 L (4.30-5.90) m/uL Hgb 12.1 L (13.5-17.5) gm/dL Hct 36.3 L (37.0-53.0) % MCV 86 (80-100) fL MCH 29 (26-34) pg MCHC 33 (32-36) gm/dL RDW Coeff of Jaime 12.6 (11.5-15.5) % Plt Count 195 (140-440) K/uL Neut % (Auto) 72.1 H (42.0-72.0) % Lymph % (Auto) 23.1 (20-44) % Hardin % (Auto) 3.9 (0.0-11.0) % Eos % (Auto) 0.3 (0.0-7.0) % Baso % (Auto) 0.3 (0.0-3.0) % Neut # (Auto) 2.60 (1.7-7.0) K/uL Lymph # (Auto) 0.80 L (0.90-2.90) K/uL Hardin # (Auto) 0.10 (0.00-0.90) K/UL Eos # (Auto) 0.00 (0.00-0.50) K/uL Baso # (Auto) 0.00 (0.00-0.30) K/uL D-Dimer Quant (PE/DVT) 0.85 H (0.00-0.50) ug/ml Sodium 135 (135-149) mmol/L Potassium 4.3 (3.6-5.1) mmol/L Chloride 102 (96-114) mmol/L Carbon Dioxide 25 (20-32) mmol/L BUN 16 (5-24) mg/dL Creatinine 0.6 (0.5-1.5) mg/dL Estimated Creat Clear 177.22 Estimated GFR 142 ml/min Glucose 104 (60-115) mg/dL Calcium 9.3 (8.4-10.6) mg/dL Total Bilirubin 0.3 (0.1-1.5) mg/dL Direct Bilirubin 0.2 (0.0-0.5) mg/dL AST 21 (12-35) U/L ALT 44 (4-50) U/L Alkaline Phosphatase 73 (40-150) U/L C-Reactive Protein 3.7 H (0.5-1.0) mg/dL Total Protein 7.4 (6.0-8.3) g/dL Albumin 4.4 (3.3-5.0) g/dL SARS-CoV-2 (PCR) (Negative) Influenza Type A (PCR) (Negative) Influenza Type B (PCR) (Negative) RSV (PCR) (Negative) POC Troponin I (0.01-0.04) ng/ml 05/18/22 05/18/22 Range/Units 12:50 13:00 WBC (4.50-11.00) K/uL RBC (4.30-5.90) m/uL Hgb (13.5-17.5) gm/dL Hct (37.0-53.0) % MCV (80-100) fL MCH (26-34) pg MCHC (32-36) gm/dL RDW Coeff of Jaime (11.5-15.5) % Plt Count (140-440) K/uL Neut % (Auto) (42.0-72.0) % Lymph % (Auto) (20-44) % Hardin % (Auto) (0.0-11.0) % Eos % (Auto) (0.0-7.0) % Baso % (Auto) (0.0-3.0) % Neut # (Auto) (1.7-7.0) K/uL Lymph # (Auto) (0.90-2.90) K/uL Hardin # (Auto) (0.00-0.90) K/UL Eos # (Auto) (0.00-0.50) K/uL Baso # (Auto) (0.00-0.30) K/uL D-Dimer Quant (PE/DVT) (0.00-0.50) ug/ml Sodium (135-149) mmol/L Potassium (3.6-5.1) mmol/L Chloride (96-114) mmol/L Carbon Dioxide (20-32) mmol/L BUN (5-24) mg/dL Creatinine (0.5-1.5) mg/dL Estimated Creat Clear Estimated GFR ml/min Glucose (60-115) mg/dL Calcium (8.4-10.6) mg/dL Total Bilirubin (0.1-1.5) mg/dL Direct Bilirubin (0.0-0.5) mg/dL AST (12-35) U/L ALT (4-50) U/L Alkaline Phosphatase (40-150) U/L C-Reactive Protein (0.5-1.0) mg/dL Total Protein (6.0-8.3) g/dL Albumin (3.3-5.0) g/dL SARS-CoV-2 (PCR) Negative SARS-CoV-2 (Negative) Influenza Type A (PCR) Negative PCR FLU A (Negative) Influenza Type B (PCR) Negative PCR FLU B (Negative) RSV (PCR) Negative PCR RSV (Negative) POC Troponin I 0.00 L (0.01-0.04) ng/ml Imaging Data CT Chest/Ab/Pelvis: Attestation: I have reviewed the pertinent imaging results. My impression: No acute findings Radiologist's impression: Patient: CIPRIANO KEVIN Facility: [facility] Site . Site : 2000 Study: CT Chest Angio PE 95cc ISOVUE 370-05/18/2022 3:22:15 PM Ordering Physician: Lu Schmidt Final Report: INDICATION: Dyspnea. Elevated D-dimer. Palpitations. History of testicular malignancy. COMPARISON: None of the chest TECHNIQUE: : CT examination of the chest was performed with the uneventful intravenous administration of 95 cc of Isovue 370 while thin axial sections were obtained from above the apices of the lungs to the lung bases. Please note that all CT scans at this facility use dose modulation, iterative reconstruction, and/or weight-based dosing when appropriate to reduce radiation dose to as low as reasonably achievable. FINDINGS: : HEART and MEDIASTINUM: The heart size is normal. There is no mediastinal or hilar adenopathy or mass. There is no pericardial effusion.Persistent or hyperplastic thymus tissue noted. PULMONARY ARTERIAL CIRCULATION: There is no visible intraluminal filling defect to suggest pulmonary embolus. LUNGS: The lungs show no focal consolidation or mass. The airways appear normal. PLEURAL SPACES: There is no pleural effusion, pneumothorax or pleural based mass. VISUALIZED UPPER ABDOMEN: The limited visualized upper abdominal structures appear normal. OSSEOUS STRUCTURES: Age-appropriate appearance. No acute fracture or destructive process. TUBES and LINES: Port ending in the SVC. INCIDENTAL SOFT TISSUES: Bilateral gynecomastia IMPRESSION: No findings of pulmonary embolus. The lungs and pleural spaces appear normal. Port placed properly. Incidental gynecomastia. Please note that all CT scans at this facility use dose modulation, iterative reconstruction, and/or weight-based dosing when appropriate to reduce radiation dose to as low as reasonably achievable. Dictated by Jacobo Sales MD @ 05/18/2022 3:57:33 PM (Electronic Signature) Discharge Plan Discharge Clinical Impression: Anxiety, Testicular cancer Patient Disposition: Home w/ Parent or Adult Condition: Stable Instructions: Testicular Cancer (DC), Anxiety (ED) Additional Instructions: Home rest use of fluids small supply of Ativan given recommend follow-up with primary care within the next week, to consider other options for anxiety, as I discussed with you this is all normal process for which you are going through. Prescriptions: No Action sennosides-docusate sodium [Stimulant Laxative Plus] 8.6-50 mg tablet 2 tab-cap PO BID PRN sertraline 100 mg tablet 100 mg PO DAILY Label Comments: TAKE 1 TABLET (100 MG) BY MOUTH EVERY MORNING. DOSE INCREASE 05/02/22 polyethylene glycol 3350 [Miralax] 17 gram/dose powder 17 g PO DAILY PRN (Reason: constipation) baclofen 10 mg tablet 10 mg PO DAILY dexamethasone 4 mg tablet 4 mg PO DAILY Hold Instructions: per oncology olanzapine [Zyprexa] 5 mg tablet 5 mg PO DAILY Hold Instructions: per oncology MD oxycodone 5 mg tablet 5 mg PO DAILY prochlorperazine maleate [Compazine] 10 mg tablet 10 mg PO DAILY Hold Instructions: per oncology MD sertraline 50 mg tablet 50 mg PO DAILY Follow Up/Referrals: Francesca Crane PA [Primary Care Provider] - Stand Alone Forms: [employer] Info Instructions
--- NOTE | 2022-05-18 14:44 | CRLHL7_ITS ---
For Patients: As a result of the Century Cures Act, medical imaging exams and procedure reports are released immediately into your electronic medical record. You may view this report before your referring provider. If you have questions, please contact your health care provider. INDICATION: Dyspnea. Elevated D-dimer. Palpitations. History of testicular malignancy. COMPARISON: None of the chest TECHNIQUE: : CT examination of the chest was performed with the uneventful intravenous administration of 95 cc of Isovue 370 while thin axial sections were obtained from above the apices of the lungs to the lung bases. Please note that all CT scans at this facility use dose modulation, iterative reconstruction, and/or weight-based dosing when appropriate to reduce radiation dose to as low as reasonably achievable. FINDINGS: : HEART and MEDIASTINUM: The heart size is normal. There is no mediastinal or hilar adenopathy or mass. There is no pericardial effusion.Persistent or hyperplastic thymus tissue noted. PULMONARY ARTERIAL CIRCULATION: There is no visible intraluminal filling defect to suggest pulmonary embolus. LUNGS: The lungs show no focal consolidation or mass. The airways appear normal. PLEURAL SPACES: There is no pleural effusion, pneumothorax or pleural based mass. VISUALIZED UPPER ABDOMEN: The limited visualized upper abdominal structures appear normal. OSSEOUS STRUCTURES: Age-appropriate appearance. No acute fracture or destructive process. TUBES and LINES: Port ending in the SVC. INCIDENTAL SOFT TISSUES: Bilateral gynecomastia IMPRESSION: No findings of pulmonary embolus. The lungs and pleural spaces appear normal. Port placed properly. Incidental gynecomastia. Please note that all CT scans at this facility use dose modulation, iterative reconstruction, and/or weight-based dosing when appropriate to reduce radiation dose to as low as reasonably achievable. Dictated by Jacobo Sales MD @ 05/18/2022 3:57:33 PM (Electronically Signed)
== END 2022-05-18 17:12 | disposition home or self-care (01) ==
PROVIDERS: Emergency Provider Family Medicine; PCP Physician Assistant
DX: F41.9 Anxiety disorder, unspecified (principal); C62.00 Malignant neoplasm of unspecified undescended testis
CPT/HCPCS: 36415; 71046; 71260; 80048; 80076; 84484; 85025; 85379; 86140; 87502; 87634; 87635; 93005; 99284; 99285; A9270; J2060; J7030; Q9967

== ENCOUNTER 2023-08-30 05:30 | Emergency (ER) | payer MEDICAID, SELFPAY ==
[2023-08-30 05:38] VITALS: BP 139/101; PULSE 98; RESP 16; TEMP 37.2; O2SAT 97; BMI 33.8
--- NOTE | 2023-08-30 05:56 | ED_ITS ---
HPI - General Adult General Chief complaint: Nausea/Vomiting Stated complaint: Vomiting, weak Time Seen by Provider: 08/30/23 05:42 Source: patient Mode of arrival: ambulatory Limitations: no limitations History of Present Illness HPI narrative: 22-year-old male presents with mother for evaluation of vomiting that started a couple of hours ago. Awoke him from sleep. Nonbloody, bilious in nature. Mom with similar symptoms last week. No fever, no trauma or injury. No prior history of abdominal surgeries. Did not try any interventions at home prior to coming to ED. has had several bouts of vomiting, no diarrhea. Appetite had been fine, had some leftover chicken for dinner last night. No bloody stools. No urinary changes. No pertinent travel. Has some achy epigastric pain since vomiting. No other abdominal pain, difficulty breathing, rash or other notable symptoms. Past medical history notable for Augmentin allergy, causing hives. Denies long- term medications. Prior testicular cancer with resection couple of years ago, uncomplicated. Did have adjuvant chemotherapy, completed course. ROS notable for the GI symptoms as above only, otherwise denies times 12 systems Related Data Home Medications Medication Instructions Recorded Confirmed sertraline 100 mg tablet 100 mg PO DAILY 05/18/22 05/30/23 Allergies Allergy/AdvReac Type Severity Reaction Status Date / Time clavulanic acid Allergy Mild Hives Verified 05/30/23 09:42 [facility] Medical History Testicular cancer ?C62.90 - Malignant neoplasm of unspecified testis, unspecified whether descended or undescended (ICD-10) COVID ?U07.1 - COVID-19 (ICD-10) Malignant neoplasm of descended left testis ?C62.12 - Malignant neoplasm of descended left testis (ICD-10) Pilonidal abscess ?L05.01 - Pilonidal cyst with abscess (ICD-10) Anxiety ?F41.9 - Anxiety disorder, unspecified (ICD-10) Depression ?F32.A - Depression, unspecified (ICD-10) Surgical History Status post chemotherapy ?Z92.21 - Personal history of antineoplastic chemotherapy (ICD-10) History of excision of pilonidal cyst ?Z98.890 - Other specified postprocedural states (ICD-10) History of tympanostomy ?Z98.890 - Other specified postprocedural states (ICD-10) History of orchiectomy ?Z90.79 - Acquired absence of other genital organ(s) (ICD-10) Social History Smoking Status: Never smoker How often do you have a drink containing alcohol: never AUDIT-C Alcohol total score: 0 Non-prescribed substance use: former substance user and marijuana (any form) Non-prescribed substance use details: stopped when diagnosed with cancer Caffeine: No Exam Const: Vital Signs, click to edit/add: Vital Signs - 24 hr 08/30/23 05:38 Temperature 98.9 F Pulse Rate [Pulse Oximeter] 98 Respiratory Rate 16 Blood Pressure [Ri ght Upper Arm] 139/101 H Pulse Oximetry 97 Oxygen Delivery Me thod Room Air Documenting provider has reviewed patient's vital signs: yes Other: Diaphoretic, mildly pale. Answers questions appropriately with good insight. No signs of intoxication. HENMT: Common normals: normocephalic, moist oral mucous membranes and oropharynx normal Head and scalp: normocephalic Face and sinus: normal facial exam Eye: Common normals: conjunctivae normal General eye: normal appearance of both eyes Conjunctiva: conjunctiva(e) normal Neck & C-Spine: Common normals: no lymphadenopathy Resp: Common normals: normal respiratory effort, no use of accessory muscles and clear to auscultation bilaterally Effort & inspection: able to speak in complete sentences Auscultation: clear to auscultation bilaterally Cardio: Common normals: regular rate, regular rhythm, S1 normal heart sound, S2 normal heart sound and no murmurs Rate: regular rate Rhythm: regular rhythm Heart sounds: S1 normal and S2 normal GI: Common normals: Normal to inspection, nondistended, normoactive bowel sounds present, soft to palpation, no hepatosplenomegaly and no masses Palpation: soft and no hepatosplenomegaly Other: Mildly tender to palpation of epigastric only. Extremity: Common normals: normal to inspection and normal capillary refill Neuro: Speech: speech normal Motor exam: no movement abnormalities noted Psych: Attitude: engaged Activity/motor behavior: appropriate eye contact Insight: insight good Judgement: judgment good Skin: Narrative: Diaphoretic but otherwise no signs of abnormalities or rash Course Course ED Course: 22-year-old male with vomiting without fever, tachycardia, hypotension, signif icant abdominal pain. Suspect gastroenteritis. Exam is fairly reassuring. Counseled patient that I would like to start with 4 mg of Zofran and 1 L of LR. Differential diagnosis also including pancreatitis, obstruction, mass, perforation, trauma, kidney stone, among others. Patient was agreeable to symptomatic treatment as he agrees that he is not exhibiting other concerning symptoms. Await clinical response and determine if more testing is necessary. Reevaluation(s) Time of Reevaluation #1: 06:57 Reevaluation #1: Patient feeling much better after fluids and Zofran. Vitals remained stable, no fever. I do not recommend further workup for testing. Likely gastroenteritis. Counseled to push fluids, Tylenol and ibuprofen as needed for discomfort. Prilosec or Pepcid once daily for the next 5 days. Prescription for Zofran given from [facility]. Take another dose at noon and then every 6 hours as needed for nausea and vomiting. Should be markedly better in about 24 to 36 hours. Okay to work this weekend as planned. Alarm symptoms reviewed that would warrant further ED workup. He verbalizes understanding and agreement will be discharged home in about 15 minutes after his fluids are finished. Vital Signs Vital signs: Initial Vital Signs Temperature 98.9 F 08/30/23 05:38 Temperature Source Temporal Artery Scan 08/30/23 05:38 Pulse Rate 98 08/30/23 05:38 Respiratory Rate 16 08/30/23 05:38 Blood Pressure 139/101 H 08/30/23 05:38 Blood Pressure Mean 113 H 08/30/23 05:38 Blood Pressure Position Sitting 08/30/23 05:38 Pulse Oximetry 97 08/30/23 05:38 Oxygen Delivery Method Room Air 08/30/23 05:38 Vital Signs Temperature 98.9 F 08/30/23 05:38 Pulse Rate 98 08/30/23 05:38 Respiratory Rate 16 08/30/23 05:38 Blood Pressure 139/101 H 08/30/23 05:38 Pulse Oximetry 97 08/30/23 05:38 Oxygen Delivery Method Room Air 08/30/23 05:38 Temperature 98.9 F 08/30/23 05:38 Pulse Rate 98 08/30/23 05:38 Respiratory Rate 16 08/30/23 05:38 Blood Pressure 139/101 H 08/30/23 05:38 Pulse Oximetry 97 08/30/23 05:38 Oxygen Delivery Method Room Air 08/30/23 05:38 Medications Administered Medications: Discontinued Medications Generic Name Dose Route Start Last Admin Trade Name Brady PRN Reason Stop Dose Admin Lactated Ringer's 1,000 mls @ 1,000 mls/hr 08/30/23 05:55 08/30/23 06:55 Lactated Ringers 1000 Ml IV 08/30/23 06:54 Infused .Q1H ONE Infusion Ondansetron HCl 4 mg 08/30/23 05:55 08/30/23 05:59 Ondansetron 2 Mg/Ml Inj IVP 08/30/23 05:56 4 mg ONCE ONE Administration Discharge Plan Discharge Clinical Impression: Gastroenteritis Patient Disposition: Home w/ Parent or Adult Condition: Improved Instructions: Gastroenteritis (DC) Additional Instructions: I am glad that your feeling better. As we discussed, your likely to have a return of your nausea and vomiting if you do not take medication. I would recommend that you take [id number] Pepcid or Prilosec once daily for the next 5 days, this will help with that epigastric discomfort and promote stomach healing. If you get any diarrhea, it is safe for you to take [id number] Imodium. I have given you a prescription for Zofran, that is the anti nausea medicine that you were given here in the emergency department. Plan to take a dose again at noon. After that, you may continue using the medicine up to every 6 hours as needed for nausea and vomiting. Drink plenty of fluids. Slowly advance her diet as tolerated. You should be feeling much better by tomorrow. Come back to the emergency department if you have high fever, severe abdominal pain, weakness, bloody stools or other unexpected symptoms. Activity Level: Activity as Tolerated Discharge Diet: Regular Prescriptions: No Action sertraline 100 mg tablet 100 mg PO DAILY Patient Comments: TAKE 1 TABLET (100 MG) BY MOUTH EVERY MORNING. DOSE INCREASE 05/02/22 Follow Up/Referrals: Francesca Crane PA [Primary Care Provider] - Stand Alone Forms: [employer] Info Instructions
[2023-08-30] MEDS: LACTATED RINGERS 1000 ML 1,000 ML IV (05:59)
[2023-08-30] MEDS: ONDANSETRON 2 MG/ML inj 4 MG IVP (05:59)
--- OUTSIDE RECORDS SUMMARY | 2023-08-30 06:10 | XMS_ITS ---
Author Name Unknown Organization [facility] Address [address] [place] [address] Care Team Providers Care Classroom Instructional Aide Name Role Phone Unavailable Unavailable Unavailable Surgery Details Not on file Complications Check Surgery Details section. Procedure Estimated Blood Loss Check Surgery Details section. Procedure Findings Check Surgery Details section. Procedure Specimens Taken Check Surgery Details section.
--- OUTSIDE RECORDS SUMMARY | 2023-08-30 06:10 | XMS_ITS | Encounter Summary ---
Author Name Unknown Organization [facility] Address [address] [place] [id number] Care Team Providers Care Traditional [facility] Health Practitioner Name Role Phone Unavailable Primary Care Provider Unavailabl e Encounter Details Date Type Department Care Team (Latest Contact Info) Description 08/16/2023 7:30 AM CDT - 08/16/2023 7:53 AM CDT Hospital Encounter Department of Laboratory Medicine and Pathology, [facility], in [place], [place] [address] [place] [address] Melissa Godinez APRN, C.N.P., D.N.P. [address] [place] [id number] Malignant Neoplasm Of Testis Left (HCC) Discharge Disposition: Home or Self Care Social History Tobacco Use Types Packs/Day Years Used Date Smoking Tobacco: Never Passive Smoke Exposure: Past Smokeless Tobacco: Never Alcohol Use Standard Drinks/Week Comments Yes 3 (1 standard drink = 0.6 oz pur e alcohol) Humiliation, Afraid, Rape, and Kick questionnair e Answer Date Recorded Within the last year, have y ou been afraid of your partner or ex-partner? No 10/27/2022 Within the last year, have y ou been humiliated or emotionally abused in other ways by your partner or ex-partner? No Within the last year, have y ou been kicked, hit, slapped, or otherwise physically hurt by your partner or ex-partner? No 10/27/2022 Within the last year, have y ou been raped or forced to have any kind of sexual activity by your partner or ex-partner? No 10/27/2022 Overall Financial Resource Strain (CARDIA) Answe r Date Recorded How hard is it for you to pa y for the very basics like food, housing, medical care, and heating? Somewhat hard 10/27/2022 Exercise Vital Sign Answer Date Recorde d On average, how many days pe r week do you engage in moderate to strenuous exercise (like a brisk walk)? 3 days Minutes of Exercise per Session Not on file 10/27/2022 Hunger Vital Sign Answer Date Recorded Within the past 12 months, y ou worried that your food would run out before you got the money to buy more. Sometimes true Within the past 12 months, t he food you bought just didn't last and you didn't have money to get more. Never true PRAPARE - Transportation Answer Date Re corded In the past 12 months, has l ack of transportation kept you from medical appointments or from getting medications? No 09/30 In the past 12 months, has l ack of transportation kept you from meetings, work, or from getting things needed for daily living? No 10/27/2022 Nutrition Answer Date Recorded Nutrition: EVOO Fat Source Unknown 10/27 On average, how many serving s of fruits and vegetables do you eat per day (serving size is equal to 1 cup or approximately the size of a tennis ball)? 0-2 10/27/2022 Dental Answer Date Recorded Dental: Regular Dentist No 10/28/19 Employment Answer Date Recorded Employment status Employed but not working due t o illness or injury 10/27/2022 Housing Stability Answer Date Recorded What is your living situation today? I have a [facility] place to live 10/27/2022 Sex and Gender Information Value Date Recorded Sex Assigned at Male 10/27/2022 1:06 PM CDT Gender Identity Male 10/27/2022 1:06 PM CDT Sexual Orientation Straight 10/27/2022 1: 06 PM CDT documented as of this encounter Medications at Time of Discharge Medication Sig Dispensed Refills Start Date End Date acetaminophen (TYLENOL) 500 mg tablet Take 500 mg by mouth as needed for pain. lidocaine HCL 2 % cream Apply topically as needed. 04/06/2022 LORazepam (ATIVAN) 0.5 mg tablet Take 0.5 mg by mouth 2 (two) times a day as needed for anxiety. multivit-min/ferrous fumarate (MULTI VITAMIN ORAL) Take 2 tablets by mouth 2 (two) times a day. polyethylene glycol (MIRALAX) 17 gram/dose oral powder Take 17 g by mouth as needed for constipation. 05/18/2022 sertraline (ZOLOFT) 100 mg tablet Take 100 mg by mouth daily. 05/02/2022 documented as of this encounter Plan of Treatment Not on file documented as of this encounter Procedures Procedure Name Priority Date/Time Associated Diagnosis Comments BHCG (BETA-HUMAN CHORIONIC GONADOTROPIN), RORY, S Routine 08/16/2023 7:50 AM CDT Malignant Neoplasm Of Testis Left (HCC) ALPHA-FETOPROTEIN (AFP) TM, S Routine 08/16/2023 7:50 AM CDT Malignant Neoplasm Of Testis Left (HCC) LACTATE DEHYDROGENASE (LD), S Routine 08/16/2023 7:50 AM CDT Malignant Neoplasm Of Testis Left (HCC) CREATININE WITH EGFR, S/P Routine 08/16/2023 7:50 AM CDT Malignant Neoplasm Of Testis Left (HCC) documented in this encounter Results * Creatinine with Estimated GFR (08/16/2023 7:50 AM CDT) Creatinine 0.98 0.74 - 1.35 mg/dL 08/16/2023 9:05 AM CDT DTL Estimated GFR (eGFR) >90 >=60 mL/min/BSA 08/16/2023 9:05 AM CDT DTL Comment: Estimated GFR calculated using the 2020 CKD_EPI creatinine equation. Blood (Blood, Venous) 08/16/2023 7:50 AM CDT 08/16/2023 8:33 AM CDT Melissa Godinez APRN, C.N.P., D.N.P. L AB BLOOD ADD-ON [facility] [address] [place] [address], [facility] DTL [facility] [address] [place] [address] * BHCG (Beta-Human Chorionic Gonadotropin), Quantitative (Tumor Marker) (08/16/2023 7:50 AM CDT) Beta-HCG, Quantitative, S <0.6 <1.4 IU/L 08/16/2023 2:01 PM CDT [facility] Comment: ----ADDITIONAL INFORMATION---- This test has been modified from the naval surface fire support planner's instructions. Its performance characteristics were determined by [facility] in a manner consistent with CLIA requirements. This test has not been cleared or approved by the U.S. Food and Drug Administration. The testing method is an electrochemiluminescence assay manufactured by [employer] and performed on the Modular or Milind system. Values obtained with different assay methods or kits may be different and cannot be used interchangeably. Test results cannot be interpreted as absolute evidence for the presence or absence of malignant disease. Blood (Blood, Venous) 08/16/2023 7:50 AM CDT 08/16/2023 1:23 PM CDT Melissa Godinez APRN, C.N.P., D.N.P. L AB BLOOD ADD-ON [facility] [address] [place] [address] [facility] [address] [place] [address] * AFP (Alpha-Fetoprotein), Tumor Marker (08/16/2023 7:50 AM CDT) Pathologist [facility] Alpha-Fetoprotein, Tumor Marker, S 2.8 <8.4 ng/mL 08/16/2023 1:59 PM CDT [facility] Comment: ----ADDITIONAL INFORMATION---- In this [place] assay AFP concentrations are <8.4 ng/mL for 99% of a normal population consisting of non- healthy individuals, without known liver disease, hepatocellular carcinoma, or germ-cell tumors. ??The persistence of alpha-fetoprotein, an uncommon hereditary trait may cause elevations of AFP above the reference interval. In some immunoassays, the presence of unusually high concentrations of analyte may result in a high-dose hook effect. This may result in a lower or even normal measured analyte concentration. ??If the reported result is inconsistent with the clinical presentation, the laboratory should be alerted for troubleshooting. For diagnostic purposes, these immunoassay results should always be assessed in conjunction with the patients medical history, clinical examination and other findings. ? The testing method is an immunoenzymatic assay manufactured by [employer]. and is tested on the SwingTime DxI 800. Values obtained with different assay methods or kits may be different and cannot be used interchangeably. ? Test results cannot be interpreted as absolute evidence of the presence or absence of malignant disease. Alpha-Fetoprotein values are not interpretable in females for the investigation of malignant disease. Blood (Blood, Venous) 08/16/2023 7:50 AM CDT 08/16/2023 1:10 PM CDT Melissa Godinez APRN, C.N.P., D.N.P. L AB BLOOD ADD-ON Performing Organization Address City/[facility]/ZIP Co de Phone Number [facility] [address] [place] [address] [facility] [address] [place] [address] * LD (Lactate Dehydrogenase) (08/16/2023 7:50 AM CDT) Lactate Dehydrogenase (LD), S 138 122 - 222 U/L 08/16/2023 9:05 AM CDT DTL Blood (Blood, Venous) 08/16/2023 7:50 AM CDT 08/16/2023 8:33 AM CDT Melissa Godinez APRN, Willie.N.P., D.N.P. L AB BLOOD NON ADD-ON Performing Organization Address City/[facility]/ZIP Co de Phone Number [facility] [address] [place] [address], [facility] DTL [facility] [place] [address] [place] [address] documented in this encounter Visit Diagnoses Diagnosis Malignant Neoplasm Of Testis Left (HCC) documented in this encounter
--- OUTSIDE RECORDS SUMMARY | 2023-08-30 06:10 | XMS_ITS | Clinical Summary ---
Author Name Unknown Organization [facility] Address [place], [place] [address] Care Team Providers Care Mason Apprentice Name Role Phone Pcp, No Primary Care Provider Unavailabl e Allergies Active Allergy Reactions Criticality Noted Date Comments Clavulanic Acid *Unknown Low 03/26/2012 Medications Medication Sig Dispensed Refills Start Date End Date Status lidocaine-prilocaine (EMLA) 2.5-2.5 % cream 04/06/2022 Active sertraline (ZOLOFT) 100 mg tabletIndications:De pression, major, single episode, mild (HC),Anxiety Take 1 Tablet (100 mg) by mouth every morning. Dose increase 05/02/22 90 Tablet 1 05/02/2022 Active clonazePAM (KLONOPIN) 0.5 mg tablet TAKE 1 TABLET ORALLY 2 TIMES PER DAY NEEDED FOR ANXIETY. Active Active Problems Problem Noted Date Diagnosed Date Malignant neoplasm of descended left testis 12/2021 Pilonidal abscess 02/17/2021 Family history of sudden cardiac in father 11/19/2020 Overview: Father collapsed at home and , heart attack. Also had hypertension and cirrhosis. Depression, major, single episode, mild 11/20/19 21 Anxiety 11/19/2020 Encounters Date Type Department Care Team Description 06/22/2023 1:10 PM FOOD SERVICE MANAGER Office Visit [facility] [address] [place] [address] Gauri Roldan PA Concerns (Last week- Bowel movement was super dark- but not black, since then stools have been very light since and loose- abdomen feels full/bloated. Still having bowel movements. ) 06/22/2023 Travel 06/07/2023 9:00 AM FOOD SERVICE MANAGER Office Visit [facility] [address] [place], [place] [id number] Helena Birch MD Headache (Headache started the . Thinks stress related. He has a lot going on in life. Thinks body is still recovery from radiation. ) 06/06/2023 Travel from Last 3 Months Immunizations Name Administration Dates Next Due COVID-19 vaccine (TypemockBio NTech 30mcg/0.3mL) 12YO+ CHRISTOPHER-SUCROSE PF, MDV 06/07/2021 DTaP 09/14/2006, 4,03/14/2002,01/17,2001 HIB-HepB (Comvax) 09/15/2002,01/17/2002,11/16/19 02 HPV 9 (Gardasil 9) 11/15/2015 Inactivated Polio Vaccine 09/14/2006,,01/17/2002,11/15 Influenza, IIV3 (Age 6-35 mos) 01/20/2009 Influenza, IIV3 (Age >=3 years) 02/06/2010,03/14 Influenza, IIV4 04/10/2022,06/07/2021 MMR 09/15/2002 MMRV 09/14/2006 Meningococcal Vaccine (Menveo) 12/20/2012 Pneumococcal conj 7-Valent (Prevnar 7) 3,01/17/2002,2001 Tdap 12/20/2012 Varicella Vaccine 09/15/2002 Family History Medical History Relation Name Comments Cirrhosis Father Liu alcohol Heart attack Father Liu sudden cardiac Hypertension Father Liu Hypertension Maternal Grandfather Diabetes Paternal Aunt Heart Disease Paternal Aunt around a ge 50 Heart attack Paternal Grandfather cardiac arrest at 70 Heart Disease Paternal Grandmother a t 52 Anesthesia Problem No Family History Clotting disorder No Family History Relation Name Status Comments Father Liu Maternal Grandfather Mother Alive Paternal Aunt Paternal Grandfather Paternal Grandmother Social History Tobacco Use Types Packs/Day Years Used Date Smoking Tobacco: Never Passive Smoke Exposure: Yes Smokeless Tobacco: Never Tobacco Cessation:Counseling Given: No Comments:brother and mom outside Alcohol Use Standard Drinks/Week Comments No 0 (1 standard drink = 0.6 oz pur e alcohol) PHQ-2 Answer Date Recorded PHQ-2 TOTAL SCORE 0 06/07/2023 Social Connections Answer Date Recorded Frequency of Communication with Friends and Fami ly 0 06/06/2023 Financial Resource Strain Answer Date R ecorded Difficulty of Paying Living Expenses 3 06/06/2023 Difficulty of Paying Living Expenses Not on file 06/06/2023 Food Insecurity Answer Date Recorded Worried About Running Out of Food in the Last Ye ar 1 06/06/2023 Transportation Needs Answer Date Record ed Lack of Transportation (Medical) 1 06/06/2023 Housing Stability Answer Date Recorded Unable to Pay for Housing in the Last Year 1 06/06/2023 Sex and Gender Information Value Date Recorded Sex Assigned at Male 06/05/2021 4:12 PM FOOD SERVICE MANAGER Gender Identity Male 06/05/2021 4:12 PM FOOD SERVICE MANAGER Sexual Orientation Not on file Obstetrics History Last Filed Vital Signs Vital Sign Reading Time Taken Comments Blood Pressure 120/81 06/22/2023 1:14 PM FOOD SERVICE MANAGER Pulse 67 06/22/2023 1:14 PM FOOD SERVICE MANAGER Temperature 37.2 ??C (99 ??F) 03/06/2022 3:09 PM FOOD SERVICE MANAGER Respiratory Rate 12 03/06/2022 3:09 PM FOOD SERVICE MANAGER Oxygen Saturation 97% 06/22/2023 1:14 PM FOOD SERVICE MANAGER Inhaled Oxygen Concentration - - Weight 94.3 kg (208 lb) 06/22/2023 1:14 PM FOOD SERVICE MANAGER Height 171 cm (5' 7.32) 06/07/2023 9:03 AM FOOD SERVICE MANAGER Body Mass Index 32.27 06/07/2023 9:03 AM FOOD SERVICE MANAGER Plan of Treatment Health Maintenance Due Date Last Done Comments Pneumococcal series for age 6-64 (1 of 2 - PCV) 09/14/2007 09/15/2002, 01/17/2002, 2001 HPV series for age 9-26 (2 - Risk male 3-dose series) 12/13/2015 11/15/2015 HIV for age 15-65 2016 Hepatitis C screening for age 18-79 09/14/2019 Tetanus booster 12/20/2022 12/20/2012 COVID-19 vaccine series ( season) 2022 06/07/2021, 09/17/2020, 08/27/2020 Influenza for age 9-49 12/30/2023 , 06/07/2021, 02/06/2010, Additional history exists BMI (ht and wt on same day) for age 18+ 06/07/2024 06/07/2023, 04/10/2022, 03/06/2022, Additional history exists Depression screening for age 12+ 06/07/2024 06/07/2023, 05/02/2022, 02/15/2022, Additional history exists Meningococcal series for age 11-21 Aged Out 12/20/2012 No longer eligible based on patient's age to complete this topic Tdap Completed 12/20/2012 Advance Directives * Full Code (Latest Code Status on File) Date Activated Date Inactivated Comments 07/27/2021 11:00 AM 07/27/2021 5:56 PM Question Answer Comments Code Status Discussion: Reviewed Preferences * Full Code Date Activated Date Inactivated Comments 04/27/2021 7:24 AM 04/28/2021 2:27 AM Question Answer Comments Code Status Discussion: Reviewed Preferences Care Teams Mason Apprentice Relationship Specialty Start Date End Date Pcp, No . PCP - General 03/20/23
--- OUTSIDE RECORDS SUMMARY | 2023-08-30 06:10 | XMS_ITS | Referral Summary ---
Author Name Unknown Organization [facility] Address [address] [place] [id number] Care Team Providers Care Telehealth Case Manager Name Role Phone Unavailable Primary Care Provider Unavailabl e Source Comments Patient records contain information from all sites at [facility]. For routine questions regarding patient records, call [phone] during business hours, M-F 8:00 AM - 5:00 PM Central Time. Record requests for emergency care only can be directed to [phone] at any time.[facility] Encounters Date Type Department Care Team Description 08/16/2023 7:30 AM CDT - 08/16/2023 7:53 AM CDT Hospital Encounter Department of Laboratory Medicine and Pathology, [facility] in [place], [place] [address] [place] [phone] Melissa Godinez APRN, C.N.P., D.N.P. Malignant Neoplasm Of Testis Left (HCC) Discharge Disposition: Home or Self Care 08/16/2023 7:54 AM CDT - 08/16/2023 8:17 AM CDT Hospital Encounter Department of Radiology, [facility] in [place], [place] [address] [place] [phone] Melissa Godinez APRN, C.N.P., D.N.P. Malignant Neoplasm Of Testis Left (HCC) Discharge Disposition: Home or Self Care 08/16/2023 9:54 AM CDT - 08/16/2023 11:59 PM CDT Hospital Encounter Department of Radiology, [facility] in [place], [place] [address] [place] [phone] Melissa Godinez APRN C.N.P., D.N.P. Malignant Neoplasm Of Testis Left (HCC) Discharge Disposition: Home or Self Care 08/16/2023 8:18 AM CDT - 08/16/2023 9:53 AM CDT Hospital Encounter Department of Radiology, [facility], in [place], [place] [address] [place] [phone] Melissa Godinez APRN C.N.P., D.N.P. Malignant Neoplasm Of Testis Left (HCC) Discharge Disposition: Home or Self Care 08/16/2023 2:00 PM CDT Office Visit Department of Urology in [place], [place] [address] [place] [phone] Myesha Pope M.D. Malignant Neoplasm Of Testis Left (HCC) (Primary Dx) 08/15/2023 12:30 PM CDT Clinical Communication Virtual Review in [place], [place] 200 [place] [phone] Pre-visit Intake from Last 3 Months Allergies Active Allergy Reactions Criticality Noted Date Comments Clavulanic Acid Other (see comments) ,Rash,Hives only, no other systemic symptoms Low 03/26/2012 Medications Medication Sig Dispensed Refills Start Date End Date Status sertraline (ZOLOFT) 100 mg tablet Take 100 mg by mouth daily. 05/02/2022 Active LORazepam (ATIVAN) 0.5 mg tablet Take 0.5 mg by mouth 2 (two) times a day as needed for anxiety. Active lidocaine HCL 2 % cream Apply topically as needed. 04/06/2022 Active multivit-min/ferr ous fumarate (MULTI VITAMIN ORAL) Take 2 tablets by mouth 2 (two) times a day. Active polyethylene glycol (MIRALAX) 17 gram/dose oral powder Take 17 g by mouth as needed for constipation. 05/18/2022 Active acetaminophen (TYLENOL) 500 mg tablet Take 500 mg by mouth as needed for pain. Active ibuprofen (MOTRIN) 600 mg tablet Take 600 mg by mouth as needed. 08/15/2023 Discontinue d (Therapy completed) Social History Tobacco Use Types Packs/Day Years [...] your living situation today? 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 Device Identifier Shelf Expiration Date Model / Serial / Lot Implantable Port Implantable Port Chest Procedures Procedure Name Priority Date/Time Associated Diagnosis Comments US SCROTUM WITH DOPPLER RAD - Routine (most inpatients and all outpatients) 08/16/2023 10:24 AM CDT Malignant Neoplasm Of Testis Left (HCC) CT ABDOMEN PELVIS WITH IV CONTRAST RAD - Routine (most inpatients and all outpatients) 08/16/2023 9:46 AM CDT Malignant Neoplasm Of Testis Left (HCC) DX CHEST AP OR PA AND LATERAL 2 VIEWS RAD - Routine (most inpatients and all outpatients) 08/16/2023 8:00 AM CDT Malignant Neoplasm Of Testis Left (HCC) CREATININE WITH EGFR, S/P Routine 08/16/2023 7:50 AM CDT Malignant Neoplasm Of Testis Left (HCC) BHCG (BETA-HUMAN CHORIONIC GONADOTROPIN), RORY, S Routine 08/16/2023 7:50 AM CDT Malignant Neoplasm Of Testis Left (HCC) ALPHA-FETOPROTEIN (AFP) TM, S Routine 08/16/2023 7:50 AM CDT Malignant Neoplasm Of Testis Left (HCC) LACTATE DEHYDROGENASE (LD), S Routine 08/16/2023 7:50 AM CDT Malignant Neoplasm Of Testis Left (HCC) from Last 3 Months Results * US Scrotum with Doppler (08/16/2023 10:24 AM CDT) Anatomical Region Laterality Modality Testes, Ultrasound RST LOS, Ultrasound ARZ LOS, Ultrasound FLA LOS N/A Ultrasound Impressions 08/16/2023 10:30 AM CDT 1. Interval left orchiectomy. No mass seen in the left hemiscrotum. 2. Normal appearing right testicle. Tiny right epididymal cyst. Narrative 08/16/2023 10:30 AM CDT EXAM: US SCROTUM WITH DOPPLER Exam performed with color and spectral Doppler analysis. COMPARISON: Ultrasound 02/13/2022 FINDINGS: Right testicle: Normal size and echotexture. No focal mass. Normal arterial blood flow on color and spectral Doppler. Right testis volume: 8.6 ml Epididymis: Tiny cyst. No hyperemia. Other: No hydrocele. No varicocele. Left testicle: Interval orchiectomy. No mass seen in the left hemiscrotum. Procedure Note Mine Biswas M.D. - 08/16/2023 EXAM: US SCROTUM WITH DOPPLER Exam performed with color and spectral Doppler analysis. COMPARISON: Ultrasound 02/13/2022 FINDINGS: Right testicle: Normal size and echotexture. No focal mass. Normalarterial blood flow on color and spectral Doppler. Right testis volume: 8.6 ml Epididymis: Tiny cyst. No hyperemia. Other: No hydrocele. No varicocele. Left testicle: Interval orchiectomy. No mass seen in the lefthemiscrotum. IMPRESSION: 1. Interval left orchiectomy. No mass seen in the left hemiscrotum. 2. Normal appearing right testicle. Tiny right epididymal cyst. Melissa Godinez APRN, C.N.P., D.N.P. I MG US PROCEDURES * CT Abdomen Pelvis with IV Contrast (08/16/2023 9:46 AM CDT) Anatomical Region Laterality Modality Abdomen, Pelvis, Abdominal R ST LOS, Abdominal ARZ LOS, Abdominal FLA LOS N/A Computed Tomograp hy, Computed Tomography 08/16/2023 9:31 AM CDT Impressions 08/16/2023 10:33 AM CDT No substantial change since 02/21/2023. No new abdominopelvic adenopathy. Narrative 08/16/2023 10:33 AM CDT EXAM: ??CT ABDOMEN PELVIS WITH IV CONTRAST COMPARISON: ??CTs of the abdomen/pelvis 02/21/2023 and 10/27/2022, PET/CT 08/24/2022 FINDINGS: ??Left orchiectomy. The FDG avid inguinal lymph nodes noted on PET/CT 08/24/2022 (sampled on the outside with benign histology) are all normal in size, measuring up to only 6-7 mm in short axis, and a few mildly prominent lower retroperitoneal lymph nodes have not changed substantially in size or appearance dating back to 10/27/2022. No new abdominopelvic adenopathy or ascites. No focal hepatic masses. No biliary or pancreatic ductal dilatation. The solid organs are normal in appearance. The bowel is normal in caliber. Negative appendix. Patent hepatic, portal, and superior mesenteric veins. No abdominal aortic aneurysm. Stable small foci of sclerosis throughout the visualized thoracolumbar spine and pelvis. The visualized lower chest is unremarkable. Procedure Note Agustin Monteiro M.D. - 08/16/2023 EXAM: CT ABDOMEN PELVIS WITH IV CONTRAST COMPARISON: CTs of the abdomen/pelvis 02/21/2023 and 10/27/2022, PET/CT08/24/2022 FINDINGS: Left orchiectomy. The FDG avid inguinal lymph nodes noted onPET/CT 08/24/2022 (sampled on the outside with benign histology) are allnormal in size, measuring up to only 6-7 mm in short axis, and a fewmildly prominent lower retroperitoneal lymph nodes have not changed substantially in size or appearance datingback to 10/27/2022. No new abdominopelvic adenopathy or ascites. No focal hepatic masses. No biliary or pancreatic ductal dilatation. Thesolid organs are normal in appearance. The bowel is normal in caliber.Negative appendix. Patent hepatic, portal, and superior mesenteric veins. No abdominal aorticaneurysm. Stable small foci of sclerosis throughout the visualized thoracolumbarspine and pelvis. The visualized lower chest is unremarkable. IMPRESSION: No substantial change since 02/21/2023. No new abdominopelvicadenopathy. Melissa Godinez APRN, C.N.P., D.N.P. I MG CT PROCEDURES * DX Chest AP or PA and Lateral 2 Views (08/16/2023 8:00 AM CDT) Anatomical Region Laterality Modality Chest, Thoracic RST LOS, Tho racic ARZ LOS, Thoracic FLA LOS N/A Digital Radiography Impressions 08/16/2023 8:25 AM CDT No change since 02/21/2023. Lungs are clear. Port-A-Cath tip in the SVC. Slight thoracic curvature. Chest otherwise negative. Narrative 08/16/2023 8:25 AM CDT EXAM: ??DX CHEST AP OR PA AND LATERAL 2 VIEWS Procedure Note Tameka Barajas M.D. - 08/16/2023 EXAM: DX CHEST AP OR PA AND LATERAL 2 VIEWS IMPRESSION: No change since 02/21/2023. Lungs are clear. Port-A-Cath tip in the SVC.Slight thoracic curvature. Chest otherwise negative. Melissa Godinez APRN, C.N.P., D.N.P. I MG DIAGNOSTIC IMAGING PROCEDURES * BHCG (Beta-Human Chorionic Gonadotropin), Quantitative (Tumor Marker) (08/16/2023 7:50 AM CDT) Beta-HCG, Quantitative, S <0.6 <1.4 IU/L 08/16/2023 2:01 PM CDT [facility] Comment: ----ADDITIONAL INFORMATION---- This test has been modified from the early morning babysitter's instructions. Its performance characteristics were determined by [facility] in a manner consistent with CLIA requirements. [...] CDT 08/16/2023 1:23 PM CDT Melissa Godinez APRN C.N.PAriella, Calos.Olayinka.PAriella L AB BLOOD ADD-ON [facility] [address] [place] [address] [facility] [address] [place] [address] * AFP (Alpha-Fetoprotein), Tumor Marker (08/16/2023 7:50 AM CDT) Pathologist [facility] Alpha-Fetoprotein, Tumor Marker, S 2.8 <8.4 ng/mL 08/16/2023 1:59 PM CDT [facility] Comment: ----ADDITIONAL INFORMATION---- In this Mike Medina assay AFP concentrations are <8.4 ng/mL for [...] method is an immunoenzymatic assay manufactured by [employer]. and is tested on the [employer] DxI 800. Values obtained with different assay methods or kits may be different and cannot be used interchangeably. ? Test results cannot be interpreted as absolute evidence of the presence or absence of malignant disease. Alpha-Fetoprotein values are not interpretable in females for the investigation of malignant disease. Blood (Blood, Venous) 08/16/2023 7:50 AM CDT 08/16/2023 1:10 PM CDT Willie Mccormick APRN.N.P., D.N.P. L AB BLOOD ADD-ON [facility] [address] [place] [address] [facility] [address] [place] [address] * LD (Lactate Dehydrogenase) (08/16/2023 7:50 AM CDT) Lactate Dehydrogenase (LD), S 138 122 - 222 U/L 08/16/2023 9:05 AM CDT DTL Blood (Blood, Venous) 08/16/2023 7:50 AM CDT 08/16/2023 8:33 AM CDT Willie Mccormick APRN.N.P., D.N.P. L AB BLOOD NON ADD-ON Performing Organization Address City/[facility]/ZIP Co de Phone Number [facility] [address] [place] [address], [facility] DTL [facility] [address] [place] [address] * Creatinine with Estimated GFR (08/16/2023 7:50 AM CDT) Creatinine 0.98 0.74 - 1.35 mg/dL 08/16/2023 9:05 AM CDT DTL Estimated GFR (eGFR) >90 >=60 mL/min/BSA 08/16/2023 9:05 AM CDT DTL Comment: Estimated GFR calculated using the 2020 CKD_EPI creatinine equation. Blood (Blood, Venous) 08/16/2023 7:50 AM CDT 08/16/2023 8:33 AM CDT Willie Mccormick APRN.N.P., D.N.P. L AB BLOOD ADD-ON [facility] [address] [place] [address], [facility] DTL [facility] [address] [place] [address] from Last 3 Months
--- OUTSIDE RECORDS SUMMARY | 2023-08-30 06:10 | XMS_ITS | Encounter Summary ---
Author Name Unknown Organization [facility] Address [address] [place] [address] Care Team Providers Care Fitter Hand Name Role Phone Unavailable Primary Care Provider Unavailabl e Reason for Referral * Outpatient (Routine) - Closed Specialty Diagnoses / Procedures Referred By Ellaac t Referred To Contact Diagnoses Malignant Neoplasm Of Testis Left (HCC) Procedures DX Chest AP or PA and Lateral 2 Views Melissa Godinez APRN, C.N.P., D.N.P. [address] [place] [place] [phone] [facility] Referral ID Status Reason Start Date Expiration Date Visits Re quested Visits Authorized [id number] Closed 02/21/2023 02/21/2024 1 1 Reason for Visit * Outpatient (Routine) - Closed Specialty Diagnoses / Procedures Referred By Contac t Referred To Contact Diagnoses Malignant Neoplasm Of Testis Left (HCC) Procedures DX Chest AP or PA and Lateral 2 Views Melissa Godinez APRN, C.N.P., D.N.P. [address] [place] [phone] [facility] Referral ID Status Reason Start Date Expiration Date Visits Re quested Visits Authorized [id number] Closed 02/21/2023 02/21/2024 1 1 Encounter Details Date Type Department Care Team (Latest Contact Info) Description 08/16/2023 7:54 AM CDT - 08/16/2023 8:17 AM CDT Hospital Encounter Department of Radiology, [facility], in [place], [place] [address] [place] [address] Melissa Godinez APRN, C.N.P., D.N.P. [address] [place] [phone] Malignant Neoplasm Of Testis Left (HCC) Discharge [...] your living situation today? I have a [facility] place to live 10/27/2022 Sex and Gender [...] Procedure Name Priority Date/Time Associated Diagnosis Comments DX CHEST AP OR PA AND LATERAL 2 VIEWS RAD - Routine (most inpatients and all outpatients) 08/16/2023 8:00 AM CDT Malignant Neoplasm Of Testis Left (HCC) documented in this encounter Results * DX Chest AP or PA and [...] C.N.P., D.N.P. I MG DIAGNOSTIC IMAGING PROCEDURES documented in this encounter Visit Diagnoses Diagnosis Malignant Neoplasm Of Testis Left (HCC) documented in this encounter
--- OUTSIDE RECORDS SUMMARY | 2023-08-30 06:10 | XMS_ITS | Encounter Summary ---
Author Name Unknown Organization [facility] Address [address] [place] [address] Care Team Providers Care Hospital Tray Service Worker Name Role Phone Unavailable Primary Care Provider Unavailabl e Reason for Referral * Outpatient (Routine) - Closed Specialty Diagnoses / Procedures Referred By Stanley fontana Referred To Contact Diagnoses Malignant Neoplasm Of Testis Left (HCC) Procedures US Scrotum with Doppler Melissa Godinez APRN, C.N.P., D.N.P. [address] [place] [phone] [facility] Referral ID Status Reason Start Date Expiration Date Visits Re quested Visits Authorized [id number] Closed 02/21/2023 02/21/2024 1 1 Reason for Visit * Outpatient (Routine) - Closed Specialty Diagnoses / Procedures Referred By Stanley fontnaa Referred To Contact Diagnoses Malignant Neoplasm Of Testis Left (HCC) Procedures US Scrotum with Doppler Melissa Godinez APRN, C.N.P., D.N.P. [address] [place] [phone] [facility] Referral ID Status Reason Start Date Expiration Date Visits Re quested Visits Authorized [id number] Closed 02/21/2023 02/21/2024 1 1 Encounter Details Date Type Department Care Team (Latest Contact Info) Description 08/16/2023 9:54 AM CDT - 08/16/2023 11:59 PM CDT Hospital Encounter Department of Radiology, [facility], in [place], [place] [address] [place] [address] Melissa Godinez, ANNE, C.N.P., D.N.P. [address] [place] [address] Malignant Neoplasm Of Testis Left (HCC) Discharge [...] your living situation today? I have a [facility] place to live 10/27/2022 Sex and Gender [...] (HCC) documented in this encounter Results * US Scrotum with Doppler (08/16/2023 [...] APRN, C.N.P., D.N.P. I MG US PROCEDURES documented in this encounter Visit Diagnoses Diagnosis Malignant Neoplasm Of Testis Left (HCC) documented in this encounter
--- OUTSIDE RECORDS SUMMARY | 2023-08-30 06:10 | XMS_ITS | Data Portability ---
Author Name Unknown Address [address] [place] [address] Phone [phone] Organization [facility] Address [address] [place] [address] Care Team Providers Care Baker Chef Name Role Phone [facility] Primary Care Provider Assessment Encounter Date Assessment Date Assessment LastModified by Organization Details LastModified Time 03/03/2022 03/03/2022 21-year-old male who presents today for evaluation of a left testicular mass. He has been having pain in this area intermittently for 1 month. An ultrasound was performed on February 13 which reveals an area concerning for neoplasm. Exam today is consistent with a testicular mass. I discussed the patient with Dr. Williams Montiel and Dr. Talbot. Dr. Talbot will be performing the procedure. The patient will need a left orchiectomy. Patient will be scheduling his procedure today with Dr. Talbot. He is encouraged to call with any questions he has in the interim. [email or web address] Not available 03/03/2022 10:53:37 Plan of Treatment Reminders Order Date Submit Date Provider Last Modified By Organization Details Last Modified Time Details Appointments None recorded . Lab afp (alpha-f etoprote in), serum 022 03/03/20 [facility], [address], [address], [place], [address], 12:36:25 beta-HCG , quantita tive, serum or plasma 022 03/03/20 22 [facility], [address], [address], [place], [address], 2 12:36:23 ldh, serum or plasma 022 03/03/20 [facility], [address], [address], [place], [address], 2 13:02:56 CBC w/ diff 022 03/03/20 22 [facility], [address], [address], [place], [address], 2 11:19:15 BMP, serum or plasma 022 03/03/20 [facility], [address] [facility] [address] [facility], [address], [place], [address], 13:02:54 Referral None recorded . Procedures None recorded . Surgeries None recorded . Imaging None recorded . Medication Orders None recorded . Patient TargetsNo targets recorded. Patient Instructions Encounter Date Encounter Id Patient Instructions Last Modified By Organization Details Last Modified Time 08/17/2022 [id number] Physical examination today is normal. No sign of any mass in the right testicle. Continue the chemotherapy treatments as recommended by Dr. Butch Wellington. Call Dr. Talbot or urologist if you notice any testicular pain or swelling in remaining right testicle. Recommend you get a blood testosterone level with your next blood draw to see if testosterone is suppressed. If so this could be treated. Otherwise from here on out, follow-up with Dr. Wellington and if necessary [facility]. 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 Referring Physician: Forrest Talbot, Urology, Encounter Date: 03/27/2022 Results Created Date Observation Date Name Description Value Unit Range Abnormal Flag LastModifiedBy Organization Detail LastModifiedTime 03/03/20 22 03/03/2022 CBC AND DIFFE RENTI AL WBC 10.01 10*3/ uL 3.80-1 0.80 Not Available [facility] [address] [facility] [address] [facility] [address], [place], [address], 03/03/2022 11:19:14 03/03/20 22 03/03/2022 CBC AND DIFFE RENTI AL ne% 70.82 % 42.00- 82.00 Not Available [facility] [address] [facility] [address], [place], [address], 03/03/2022 11:19:14 03/03/20 22 03/03/2022 CBC AND DIFFE RENTI AL ly% 20.31 % 15.00- 35.00 Not Available [facility] [address] [facility] [address], [place], [address], 03/03/2022 11:19:14 03/03/20 22 03/03/2022 CBC AND DIFFE RENTI AL MO% 6.70 % 4.00-1 2.00 Not Available [facility] [address] [facility] [facility] [address] [facility] [address], [place], [address], 03/03/2022 11:19:14 03/03/20 22 03/03/2022 CBC AND DIFFE RENTI AL eo% 2.03 % 1.00-6 .00 Not Available [facility] [address] [facility] [address], [place], [address], 03/03/2022 11:19:14 03/03/20 22 03/03/2022 CBC AND DIFFE RENTI AL ba% 0.15 % 0.00-2 .00 Not Available [facility] [address] [facility] [address], [place], [address], 03/03/2022 11:19:14 03/03/20 22 03/03/2022 CBC AND DIFFE RENTI AL ne# 7.09 10*3/ uL 1.50-7 .80 Not Available [facility] [address] [facility] [address], [place], [address], 03/03/2022 11:19:14 03/03/20 22 03/03/2022 CBC AND DIFFE RENTI AL ly# 2.03 10*3/ uL 0.85-3 .90 Not Available [facility] [address] [facility] [address], [place], [address], 03/03/2022 11:19:14 03/03/20 22 03/03/2022 CBC AND DIFFE RENTI AL MO# 0.67 10*3/ uL 0.20-0 .95 Not Available [facility] [address] [facility] [address], [place], [address], 03/03/2022 11:19:14 03/03/20 22 03/03/2022 CBC AND DIFFE RENTI AL eo# 0.20 10*3/ uL 0.02-0 .50 Not Available [facility] [address] [facility] [address], [place], [address], 03/03/2022 11:19:14 03/03/20 22 03/03/2022 CBC AND DIFFE RENTI AL ba# 0.02 10*3/ uL 0.00-0 .20 Not Available [facility] [address] [place] [address] [address], [place], [address], 03/03/2022 11:19:14 03/03/20 22 03/03/2022 CBC AND DIFFE RENTI AL RBC 5.04 10*6/ uL 4.20-5 .80 Not Available [facility] [address] [place] [address] [address], [place], [address], 03/03/2022 11:19:14 03/03/20 22 03/03/2022 CBC AND DIFFE RENTI AL HGB 15.54 g/dL 13.20- 17.10 Not Available [facility] [address] [place] [address] [address], [place], [address], 03/03/2022 11:19:14 03/03/20 22 03/03/2022 CBC AND DIFFE RENTI AL HCT 44.40 % 38.50- 50.00 Not Available [facility] [address] [facility] [address], [place], [address], 03/03/2022 11:19:14 03/03/20 22 03/03/2022 CBC AND DIFFE RENTI AL MCH 30.80 pg 27.00- 33.00 Not Available [facility] [address] [facility] [address], [place], [address], 03/03/2022 11:19:14 03/03/20 22 03/03/2022 CBC AND DIFFE RENTI AL MCHC 35.00 g/dL 32.00- 36.00 Not Available [facility] [address] [place] [address] [address], [place], [address], 03/03/2022 11:19:14 03/03/20 22 03/03/2022 CBC AND DIFFE RENTI AL MCV 88.10 fL 80.00- 100.00 Not Available [facility] [address] [place] [address] [address], [place], [address], 03/03/2022 11:19:14 03/03/20 22 03/03/2022 CBC AND DIFFE RENTI AL RDW 13.60 % 11.00- 15.00 Not Available [facility] [address] [place] [address] [address], [place], [address], 03/03/2022 11:19:14 03/03/20 22 03/03/2022 CBC AND DIFFE RENTI AL plt 356.10 10*3/ uL 140.00 -400.0 0 Not Available [facility] [address] [place] [address] [address], [place], [address], 03/03/2022 11:19:14 03/03/20 22 03/03/2022 CBC AND DIFFE RENTI AL MPV 7.[address] [facility] [address] [facility] [address], [place], [address], 03/03/2022 11:19:14 03/03/20 22 03/03/2022 B-HCG , QUANT ITATI VE B-HCG qn 2.760 m[IU] /mL 0.500- 2.670 high Not Available [facility] [address] [place] [address] [address], [place], [address], 03/03/2022 12:36:23 03/03/20 22 03/03/2022 AFP AFP 17.21 NG/mL 0.00-9 .00 high Not Available [facility] [address] [place] [address] [address], [place], [address], 03/03/2022 12:36:25 03/03/20 22 03/03/2022 CHEM 8 glu 99.60 mg/dL 70.00- 105.00 Not Available [facility] [address] [place] [address] [address], [place], [address], 03/03/2022 13:02:54 03/03/20 22 03/03/2022 CHEM 8 Ca 10.1 mg/dL 8.4-10 .2 Not Available [facility] [address] [place] [address] [address], [place], [address], 03/03/2022 13:02:54 03/03/20 22 03/03/2022 CHEM 8 Na 139.0 mmol/ L 135.0- 145.0 Not Available [facility] [address] [place] [address], [place], [address], 03/03/2022 13:02:54 03/03/20 22 03/03/2022 CHEM 8 potassium 4.6 mmol/ L 3.6-5. 0 Not Available [facility] [address] [place] [address] [address], [place], [address], 03/03/2022 13:02:54 03/03/20 22 03/03/2022 CHEM 8 chloride 104.0 mmol/ L 101.0- 111.0 Not Available [facility] [address] [place] [address] [address], [place], [address], 03/03/2022 13:02:54 03/03/20 22 03/03/2022 CHEM 8 CO2 27.0 mmol/ L 21.0-3 1.0 Not Available [facility] [address] [facility] [address], [place], [address], 03/03/2022 13:02:54 03/03/20 22 03/03/2022 CHEM 8 aniongap 8.00 0.00-1 6.00 Not Available [facility] [address] [facility] [address], [place], [address], 03/03/2022 13:02:54 03/03/20 22 03/03/2022 CHEM 8 BUN 13.0 mg/dL 7.0-18 .0 Not Available [facility] [address] [facility] [address], [place], [address], 03/03/2022 13:02:54 03/03/20 22 03/03/2022 CHEM 8 BUN/creat 16.3 ratio 9.0-20 .0 Not Available [facility] [address] [facility] [address], [place], [address], 03/03/2022 13:02:54 03/03/20 22 03/03/2022 CHEM 8 creatinine 0.8 mg/dL 0.6-1. 3 Not Available [facility] [address] [place] [address] [address], [place], [address], 03/03/2022 13:02:54 03/03/20 22 03/03/2022 CHEM 8 eGFR >60 mL/mi n_per _1.73 90-120 Not Available [facility] [address] [facility] [address], [place], [address], 03/03/2022 13:02:54 03/03/20 22 03/03/2022 LDH LDH 207 IU/L 91-180 high Not Available [facility] [address] [facility] [address], [place], [address], 03/03/2022 13:02:56 03/01/2002/13/2022 US, scrot um No observ ation record ed. [email or web address] Not Available 03/02/2022 05:17:49 03/27/2003/24/2022 CT, chest , w/ contr ast No observ ation record ed. [email or web address] [facility] [address] [facility] [address], [place], [address], 03/27/2022 18:57:06 03/27/2003/24/2022 CT, abdom en + pelvi s, w/ contr ast No observ ation record ed. [place] [facility] [address] [facility] [address], [place], [address], 03/27/2022 22:39:13 Result Notes None recorded. Procedures Surgical History Date Name Laterality Status Provider Name and Address Organization Details Recorded Time ORCHIECTOMY, RADICAL (SURG) completed Brooklyn lopez [facility] 07/18/2023 10:58:31 Imaging Results Imaging Date Name Status LastModified by Organiz ation Details LastModified Time 02/13/2022 US, scrotum completed [email or web address] Information n ot available 03/02/2022 05:17:49 03/24/2022 CT, chest, w/ contrast completed [facility] [address] [facility] [address], [place], [address], 03/27/2022 18:57:06 03/24/2022 CT, abdomen + pelvis, w/ contrast completed [place] [facility] [address] [facility] [facility] [address], [place], [address], 03/27/2022 22:39:13 Procedure Notes None recorded. Medical Equipment None Reported. Allergies No known drug allergies Medications Name Sig Start Date Stop Date Status Note LastModified by Organization Details LastModified Time clindamyc in HCl 300 mg capsule TAKE 1 CAPSULE BY MOUTH THREE TIMES A DAY 08/17 completed HN: Patient reports no longer taking Not Available Not Available Not Available clonazepa m 0.5 mg tablet TAKE 1 TABLET ORALLY 2 TIMES PER DAY NEEDED FOR ANXIETY. active Not Available Not Available No t Available sertralin e 100 mg tablet TAKE 1 TABLET (100 MG) BY MOUTH EVERY MORNING. DOSE INCREASE 05/02/22 active Not Available Not Available No t Available olanzapin e 5 mg tablet 5 MG ORALLY EVERY DAY AT BEDTIME. TAKE ON DAYS 1-8 FOR NAUSEA. active Not Available Not Available No t Available prochlorp erazine maleate 10 mg tablet TAKE 1 TABLET BY MOUTH EVERY 6 HOURS NEEDED FOR NAUSEA active Not Available Not Available No t Available lidocaine -prilocai ne 2.5 %-2.5 % topical cream APPLY TOPICALL Y 1 APPLICAT ION ONCE AT LEAST 1 HOUR PRIOR TO PROCEDUR E active Not Available Not Available No t Available oxycodone -acetamin ophen 5 mg-325 mg tablet TAKE 1 TABLET BY MOUTH EVERY 4 TO 6 HOURS active Not Available Not Available No t Available potassium chloride ER 20 mEq tablet,ex tended release(p art/cryst ) active Not Available Not Available Not Available lorazepam 0.5 mg tablet active Not Available Not Available Not Available dexametha sone 4 mg tablet 8 MG ORALLY EVERY DAY. TAKE ON DAYS 6-8. active Not Available Not Available No t Available ibuprofen 600 mg tablet 08/17 completed HN: Patient reports no longer taking Not Available Not Available Not Available levofloxa radha 500 mg tablet 1 TABLET ORALLY DAILY. TO PREVENT INFECTIO N active Not Available Not Available No t Available sertralin e 50 mg tablet 50mg 1/day active Not Available Not Available No t Available oxycodone 5 mg tablet active Not Available Not Available Not Available Stimulant Laxative Plus 8.6 mg-50 mg tablet 08/17 completed HN: Patient reports no longer taking Not Available Not Available Not Available Paxlovid 300 mg (150 mg x 2)-100 mg tablets in a dose pack TAKE 2 TABLETS (NIRMATR JOEY) AND TAKE 1 TABLET (RITONAV IR) BY MOUTH TWICE A DAY FOR 5 DAYS active Not Available Not Available No t Available Vitals Date Recorded Body weight Body mass index (BMI) Body height Provider Name and Address Organization Details Last Updated DateTime 03/03/2022 74230.42864 41235 g 32.5 kg/m2 175.26 cm Not Available Health Note 03/03/2022 09:48:17 Date Recorded Body height Provider Name an d Address Organization Details Last Updated DateTime 08/17/2022 175.26 cm Navjot Wahl [facility] 08/17/2022 10:52:16 Social History Question Answer Notes LastModified by Organizat ion Details LastModified Time Tobacco Smoking Status Never Smoker Not Available Health Note 08/13/2022 11:05:41 What Is Your Level Of Alcohol Consumption? Occasional [email or web address] Information not available 08/13/2022 What Is Your Level Of Caffeine Consumption? Moderate [email or web address] Information not available 08/13/2022 How Much Tobacco Do You Chew? None [email or web address] Information not available 08/13/2022 Do You Or Have You Ever Used E-cigarettes Or Vape? Never Used Electronic Cigarettes [email or web address] Information not available 08/13/2022 What Was The Date Of Your Most Recent Tobacco Screening? 08/17/2022 [email or web address] Information not available 08/13/2022 What Is Your Relationship Status? Single [email or web address] Information not available 08/13/2022 Are You Sexually Active? Yes [email or web address] Information not available 08/13/2022 Do You Or Have You Ever Used Smokeless Tobacco? Never Used Smokeless Tobacco [email or web address] Information not available 08/13/2022 Do You Use Any Illicit Or Recreational Drugs? Yes [email or web address] Information not available 08/13/2022 Sex: Male Functional Status None recorded. Mental Status None recorded. Family History Relationship Description Onset Age of this Age Resolved Age Notes Paternal Grandfather Family history of cardiac disorder Medical History Condition Response Sexually Transmitted Infection N Diabetes N Bleeding Disorder N High Blood Pressure N Kidney Stones N Cancer N Lung Disease N Depression Y High Cholesterol N GERD/Acid Reflux N Heart Disease N Immunizations Vaccine Type Date Status Provider Name and Address Organization Details Recorded Time SARS-COV-2 (COVID-19) vaccine, UNSPECIFIED 06/07/2021 completed Not Available Health Note 03/01/2022 10:24:48 influenza, unspecified formulation 06/07/2021 completed Not Available Health Note 03/01/2022 10:24:48 influenza, unspecified formulation 02/28/2022 completed Not Available Health Note 08/13/2022 11:05:45 SARS-COV-2 (COVID-19) vaccine, UNSPECIFIED 08/17/2020 completed Not Available Health Note 08/13/2022 11:05:45 Past Encounters Encounter ID Performer Location Encounter Start Date Encounter Closed Date Diagnosis/Indication Diagnosis SNOMED-CT Code [id number] Agustin Thao [facility] [address] [facility],[address] [address] 03/03/2022 09:47:30 03/03/2022 10:59:51 Testicular mass [id number] Forrest Talbot [facility] [address] [facility],[address] [address] 08/17/2022 10:50:54 08/17/2022 11:32:50 Malignant tumor of testis [id number] Health Concerns Section Related Observation LastModified by Organization Detai ls LastModified Time None Recorded Concern Status LastModified by Organization Details LastModified Time None Recorded Advance Directives Directive None Recorded Payers Encounter Date Sequence Insurance Name Policy Number Policy Richardson Covered Member ID Richardson Member ID Guarantor Name 08/17/2022 1 [employer] - DOS PRIOR TO 2022 (MEDICAID REPLACEMENT - HMO) [id number] 1 Colирина Nails [id number] Marquita Nails 03/03/2022 1 [employer] (PPO) [id number] Colирина Nails [id number] Marquita Nails Notes Date Note Type Note Provider Name and Address Organization Details Recorded Time 03/03/2022 text/html HPI Notes: Chief complaint: Testicular Pain 21 y/o male here to f/u from ED visit d/t left testicle pain and abnormal finding on US at ED. Pt went to ED on 02/13/22 for pain. He states mass was seen. He has had pain with touch and movement. Tries to sleep on back for comfort. Pain is intermittent. +swelling. No urinary symptoms. No abdominal or back pain. No h/o undescended testicles. Patient states that he has large dogs that may have jumped on his groin area but does not remember a specific incident. Denies a family history of urologic cancer. He is accompanied by his mother today. This past medical history includes depression He has no known allergies. WILLIE Farmer - [facility] 03/03/2022 10:53:40 08/17/2022 text/html HPI Notes: Chief complaint: Testicular Cancer Patient initially seen by Agustin Thao PA-C on 03/03/2022 21 y/o male here to f/u from ED visit d/t left testicle pain and abnormal finding on US at ED. Pt went to ED on 02/13/22 for pain. He states mass was seen. He has had pain with touch and movement. Tries to sleep on back for comfort. Pain is intermittent. +swelling. No urinary symptoms. No abdominal or back pain. No h/o undescended testicles. Patient states that he has large dogs that may have jumped on his groin area but does not remember a specific incident. Denies a family history of urologic cancer. This past medical history includes depression He has no known allergies. Scrotal ultrasound from 02/13/2022 at [facility] for left testicular pain showed a heterogeneous mass within the left testicle measuring 2.2 x 2.3 x 2.4 cm suspicious for malignancy. Right testis normal. On 03/03/2022, alpha-fetoprotein abnormally elevated at 17.21 and beta-hCG abnormal at 2.76. Patient then underwent left radical orchiectomy at [facility] 03/08/2022. 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 Margins were negative for malignancy. This was pathologic stage T2. CT scan chest abdomen and pelvis 03/24/2022 showed that the lungs were clear. There is a solitary enlarged left periaortic node measuring 2.4 x 2.3 cm. No other lymphadenopathy or evidence of metastases. He then came under the care of Dr. Butch Wellington and has undergone chemotherapy treatment with bleomycin, etoposide and cisplatin. He has undergone 4 courses of chemotherapy. Follow-up CT scan July 2022 showed resolution of the large retroperitoneal node but evidently according to the patient he has some inguinal adenopathy. There is concern he may need a retroperitoneal node dissection and he plans to see a urologist at [facility]. WILLIE Vásquez - [facility] 08/17/2022 13:14:35
--- OUTSIDE RECORDS SUMMARY | 2023-08-30 06:10 | XMS_ITS | Clinical Summary ---
Author Name Unknown Organization [facility] Address [address] [place] [address] Care Team Providers Care Roller Coaster Designer Name Role Phone Unavailable Primary Care Provider Unavailabl e Source Comments Patient records contain information from all sites at [facility]. For routine questions regarding patient records, call [phone] during business hours, M-F 8:00 AM - 5:00 PM Central Time. Record requests for emergency care only can be directed to [phone] at any time.[facility] Allergies Active Allergy Reactions Criticality Noted Date [...] as needed. 08/15/2023 Discontinue d (Therapy completed) Encounters Date Type Department Care Team Description 08/16/2023 2:00 PM CDT Office Visit Department of Urology in [place], [place] [address] [place] [phone] Myesha Pope M.D. 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 Malignant Neoplasm Of Testis Left (HCC) Discharge Disposition: Home or Self Care 08/16/2023 8:18 AM CDT - 08/16/2023 9:53 AM CDT Hospital Encounter Department of Radiology, [place], [place] [address] [place] [phone] Melissa Godinez APRN, C.N.P., D.N.P. Malignant Neoplasm Of Testis Left (HCC) Discharge Disposition: Home or Self Care 08/16/2023 7:54 AM CDT - 08/16/2023 8:17 AM CDT Hospital Encounter Department of Radiology, [facility] in [place], [place] [address] [place] [phone] Melissa Godinez APRN, C.N.P., D.N.P. Malignant Neoplasm Of Testis Left (HCC) Discharge Disposition: Home or Self Care 08/16/2023 7:30 AM CDT - 08/16/2023 7:53 AM CDT Hospital Encounter Department of Laboratory Medicine and Pathology, [facility] in [place], [place] [address] [place] [phone] Melissa Godinez APRN, C.N.P., D.N.P. Malignant Neoplasm Of Testis Left (HCC) Discharge Disposition: Home or Self Care 08/15/2023 12:30 PM CDT Clinical Communication Virtual Review in [place], [place] [address] [place] [phone] Pre-visit Intake from Last 3 Months Family History Medical History Relation Name Comments Alcohol abuse Father stephanie Anxiety disorder Father stephanie Coronary artery disease Father stephanie Depression Father stephanie Drug abuse Father stephanie Hypertension Father stephanie Other cancer Father's Sister sai cured Melanoma Maternal Grandmother Mitra cured Anxiety disorder Mother saulo alive, usin g medication Depression Mother saulo medication Relation Name Status Comments Father stephanie Father's Sister sai Maternal Grandmother Mitra Mother saulo Social History Tobacco Use Types Packs/Day Years [...] your living situation today? I have a [facility] [place] place to live 10/27/2022 Sex and Gender Information Value Date Recorded Sex Assigned at Male 10/27/2022 1:06 PM CDT Gender Identity Male 10/27/2022 1:06 PM CDT Sexual Orientation Straight 10/27/2022 1: 06 PM CDT Plan of Treatment Health Maintenance Due Date Last Done Comments HIV Screening 2001 Hepatitis C Screening 2001 1 week Well Child Check-Up 2001 Well Child Check-Up (WCC) 2001 1 month Well Child Check-Up 2001 2 month Well Child Check-Up 2001 4 month Well Child Check-Up 2001 6 month Well Child Check-Up 02/13/2002 9 month Well Child Check-Up 05/16/2002 12 month Well Child Check-Up 08/14/2002 15 month Well Child Check-Up 11/13/2002 18 month Well Child Check-Up 02/13/2003 2 year Well Child Check-Up 08/15/2003 30 month Well Child Check-Up 02/14/2004 3 year Well Child Check-Up 08/14/2004 Well Child Check-Up Completed in Past Year 08/14/2004 4 year Well Child Check-Up 08/14/2005 5 year Well Child Check-Up 08/14/2006 6 year Well Child Check-Up 08/15/2007 7 year Well Child Check-Up 08/14/2008 8 year Well Child Check-Up 08/14/2009 9 year Well Child Check-Up 08/14/2010 10 year Well Child Check-Up 08/15/2011 11 year Well Child Check-Up 08/14/2012 12 year Well Child Check-Up 08/14/2013 13 year Well Child Check-Up 08/14/2014 14 year Well Child Check-Up 08/15/2015 HPV Vaccines (2 - Male 2-dose series) 05/17/2016 11/15/2015 15 year Well Child Check-Up 08/14/2016 16 year Well Child Check-Up 08/14/2017 17 year Well Child Check-Up 08/14/2018 18 year Well Child Check-Up 08/15/2019 19 year Well Child Check-Up 08/14/2020 20 year Well Child Check-Up 08/14/2021 21 year Well Child Check-Up 08/14/2022 DTaP,Tdap,and Td Vaccines (7 - Td or Tdap) 12/20/2022 12/20/2012, 09/14/2006, 08/26/2003, Additional history exists COVID-19 Vaccine ( - season) 2022 06/07/2021, 09/17/2020, 08/27/2020 Influenza Vaccine (#1) 2023 , 02/28/2022, 06/07/2021, Additional history exists Depression Screening (Annual PHQ-2) 04/30/2023 Hepatitis B Vaccines Completed 09/15/2002, 01/17/2002, 2001 Pneumococcal vaccine (0-64 years) Aged Out 09/15/2002, 01/17/2002, 2001 No longer eligible based on patient's age to complete this topic Meningococcal Vaccine Aged Out 12/20/2012 No fiona aida eligible based on patient's age to complete this topic Medical Devices Implanted Type Area Plant Attendant Or Assistant Operator Device Identifier Shelf Expiration Date Model / [...] Quantitative (Tumor Marker) (08/16/2023 7:50 AM CDT) Pathologist [facility] Beta-HCG, Quantitative, S <0.6 <1.4 IU/L 08/16/2023 2:01 PM CDT [facility] Comment: ----ADDITIONAL INFORMATION---- This test has been modified from the brake machine operator's instructions. Its performance characteristics were determined by [facility] in a manner consistent with CLIA requirements. This test has not been cleared or approved by the U.S. Food and Drug Administration. The testing method is an electrochemiluminescence assay manufactured by [employer] and performed on the Modular or Milind system. Values obtained with different assay methods or kits may be different and cannot be used interchangeably. Test results cannot be interpreted as absolute evidence for the presence or absence of malignant disease. Blood (Blood, Venous) 08/16/2023 7:50 AM CDT 08/16/2023 1:23 PM CDT Richi Mccormick APRNP., D.N.P. L AB BLOOD ADD-ON Performing Organization Address City/State/[facility] Co de Phone Number [facility] [address] [place] [address] [facility] [address] [place] [address] * AFP (Alpha-Fetoprotein), Tumor Marker (08/16/2023 7:50 AM CDT) Pathologist [facility] Alpha-Fetoprotein, Tumor Marker, S 2.8 <8.4 ng/mL 08/16/2023 1:59 PM CDT [facility] Comment: ----ADDITIONAL INFORMATION---- In this Mike Tommy assay AFP concentrations are <8.4 ng/mL for [...] method is an immunoenzymatic assay manufactured by [employer]. and is tested on the [employer] DxI 800. Values obtained with different assay [...] L AB BLOOD ADD-ON Performing Organization Address City/[facility]/ZIP Co de Phone Number [facility] [address] [place] [address] [facility] [address] [place] [address] * LD (Lactate Dehydrogenase) (08/16/2023 7:50 AM CDT) Lactate Dehydrogenase (LD), S 138 122 - 222 U/L 08/16/2023 9:05 AM CDT DTL Blood (Blood, Venous) 08/16/2023 7:50 AM CDT 08/16/2023 8:33 AM CDT Melissa Godinez APRN, Willie.N.P., D.N.P. L AB BLOOD NON ADD-ON Performing Organization Address City/[facility]/ZIP Co de Phone Number [facility] [address] [place], [place] [address] DTL [facility] [address] [place] [address] * Creatinine with Estimated GFR (08/16/2023 7:50 AM CDT) Creatinine 0.98 0.74 - 1.35 mg/dL 08/16/2023 9:05 AM CDT DTL Estimated GFR (eGFR) >90 >=60 mL/min/BSA 08/16/2023 9:05 AM CDT DTL Comment: Estimated GFR calculated using the 2020 CKD_EPI creatinine equation. Blood (Blood, Venous) 08/16/2023 7:50 AM CDT 08/16/2023 8:33 AM CDT Melissa Godinez APRN, C.N.P., D.N.P. L AB BLOOD ADD-ON [facility] [address] [place] [address], [facility] [address] [place] [address] from Last 3 Months
--- OUTSIDE RECORDS SUMMARY | 2023-08-30 06:10 | XMS_ITS | Encounter Summary ---
Author Name Unknown Organization [facility] Address [address] [place] [address] Care Team Providers Care Intellectual Property Paralegal Name Role Phone Unavailable Primary Care Provider Unavailabl e Reason for Referral * Outpatient (Routine) - Authorized Specialty Diagnoses / Procedures Referred By Stanley t Referred To Contact Urology Riri Chacon M.D., M.B.A. [address] [place] [phone] Myesha Pope M.D. [address] [place] [phone] Referral ID Status Reason Start Date Expiration Date V isits Requested Visits Authorized [id number] Authorized 08/16/2023 02/14/2025 1 1 * MRI/CAT/PET Scan (Routine) - Pending Review Specialty Diagnoses / Procedures Referred By Contac t Referred To Contact Radiology Diagnoses Malignant Neoplasm Of Testis Left (HCC) Procedures CT Abdomen Pelvis with IV Contrast Riri Chacon M.D., M.B.A. [address] [place] [phone] [facility] Referral ID Status Reason Start Date Expiration Date V isits Requested Visits Authorized [id number] Pending Review 08/16/2023 08/15/2024 1 1 * Outpatient (Routine) - Authorized Specialty Diagnoses / Procedures Referred By Stanley fontana Referred To Contact Diagnoses Malignant Neoplasm Of Testis Left (HCC) Procedures DX Chest AP or PA and Lateral 2 Views Riri Chacon M.D., M.B.A. [address] [place] [phone] [facility] Referral ID Status Reason Start Date Expiration Date V isits Requested Visits Authorized [id number] Authorized 08/16/2023 08/15/2024 1 1 Reason for Visit * Outpatient (Routine) - Closed Specialty Diagnoses / Procedures Referred By Stanley fontana Referred To Contact Urology Myesha Pope M.D. [address] [place] [phone] Myesha Pope M.D. [address] [place] [phone] Referral ID Status Reason Start Date Expiration Date Visits Re quested Visits Authorized [id number] Closed 04/19/2023 04/18/2026 1 1 Encounter Details Date Type Department Care Team (Late st Contact Info) Description 08/16/2023 2:00 PM CDT Office Visit Department of Urology in [place], [place] [address] [place] [phone] Myesha Pope M.D. 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 - 08/16/2023 2:00 PM CDT SUBJECTIVE CHIEF COMPLAINT/REASON FOR VISIT Testicular cancer recheck HISTORY OF PRESENT ILLNESS Mr. 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 LEFT hydroceleand incidental LEFT epididymal head cyst. 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 Stage IIB, pT2, N2, M0, S1 03/24/2022 CT chest abdomen pelvis shows a solitary enlarged LEFT periaortic lymph node measuring 2.4 x 2.3 cm no other enlarged lymph nodes identified. 04/17/2022-07/11/2022 BEP x3 cycles with a one week delay due to COVID-19 08/10/2022 tumor markers AFP 3.8 08/11/2022 CT chest abdomen pelvis with resolution of LEFT para-aortic lymph node but interval development of a LEFT inguinal lymph node measuring 1.8 x 1.4 cm and a LEFT external iliac lymph node 1.5x 1.3 cm, plump RIGHT inguinal lymph node 1.2 cm 08/24/2022 PET-CT shows FDG avid LEFT greater than RIGHT inguinal and LEFT external iliac lymph nodesuspicious for metastasis 08/30/2022 biopsy of LEFT inguinal lymph node shows benign reactive lymphoid follicles with no evidence of metastatic tumor, LEFT external iliac lymph node shows benign lymph node with no evidence of metastatic tumor (Dr. Pope as personal review was the LEFT inguinal lymph node is slightly hitchcock but the LEFT external iliac lymph node was stable) 10/27/2022 tumor markers normal, CT imaging shows interval decrease and bilaterally enlarged inguinal lymph nodes with the largest located on the LEFT measuring 8 mm, chest CT was negative he was asked to return in four months. 02/21/2023 tumor markers are within normal limits, cross-sectional imaging is stable including the 8 mm LEFT inguinal lymph node Scrotal ultrasound conducted showed a right epididymal cyst with no other abnormalities found. CT scans showed no changes in size or growth of the retroperitoneal lymph nodes or inguinal lymph nodes.Tumor markers pending. He is doing very well overall. He continues self exams on average 1-2 times per week. He does get pain in his right testicle but this resolves quickly and does not occur frequently. He denies any swelling or masses on exam. He denies any changes to his urinary were ejaculatory function and denies any constitutional symptoms. 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 OBJECTIVE There were no vitals filed for this visit. PHYSICAL EXAM General: no distress Eyes: Sclera nonicteric Skin: Not jaundiced Chest: Nonlabored, breathing on room air : Right testicle without masses, epididymal cyst palpated. Patient did have pain on palpation of cyst ASSESSMENT / PLAN #1 Malignant Neoplasm Of Testis Left (HCC) It was my pleasure to meet with Mr. Nails, his girlfriend and mom today in clinic for follow-up of his testicular cancer. His tumor markers are pending but cross-sectional imaging reveals stable nodes and no evidence of recurrent or metastatic disease. In terms of a scrotal ultrasound, he does have a right epididymal cyst. I discussed that any form of surgical intervention could actually lead to infertility but he does not believe this to be bothersome enough to him to warrant any type of intervention. At this time, we will plan on following up in 6 months with repeat labs, imaging, and office visit with Dr. Pope and team. Patient is in agreement with this plan and all questions were answered. Plan: - chest x-ray, CT abdomen pelvis with the contrast, tumor markers, and office visit with Dr. Popein 6 months - we will follow-up tumor markers and let patient know if any are abnormal Patient was discussed with Dr. Pope, who is in agreement with this plan. Signed by: Riri Chacon M.D., M.B.A. 08/16/2023 1:35 PM CDT documented in this encounter Plan of Treatment Scheduled Orders Name Type Priority Associated Diagnoses Order Schedule DX Chest AP or PA and Lateral 2 Views Imaging RAD - Routine (most inpatients and all outpatients) Malignant Neoplasm Of Testis Left (HCC) Expected: 02/15/2024, Expires: 11/14/2024 CT Abdomen Pelvis with IV Contrast Imaging RAD - Routine (most inpatients and all outpatients) Malignant Neoplasm Of Testis Left (HCC) Expected: 02/15/2024, Expires: 11/14/2024 AFP (Alpha-Fetoprotein), Tumor Marker Lab Routine Malignant Neoplasm Of Testis Left (HCC) Expected: 02/15/2024, Expires: 11/14/2024 BHCG (Beta-Human Chorionic Gonadotropin), Quantitative (Tumor Marker) Lab Routine Malignant Neoplasm Of Testis Left (HCC) Expected: 02/15/2024, Expires: 11/14/2024 Scheduled Referrals Name Type Priority Associated Diagnoses Orde r Schedule Urology office visit (clinic) Outpatient Referral Routine Expected: 02/15/2024, Expires: 11/14/2024 documented as of this encounter Visit Diagnoses Diagnosis Malignant Neoplasm Of Testis Left (HCC)- Primary documented in this encounter
--- OUTSIDE RECORDS SUMMARY | 2023-08-30 06:10 | XMS_ITS | Referral Summary ---
Author Name Unknown Organization [facility] Address [address] [place] [address]. [place] [address] Care Team Providers Care Guest Services Coordinator Name Role Phone Francesca Crane Primary Care Provider [phone] Allergies Active Allergy Reactions Criticality Noted Date Comments Clavulanic Acid Unknown Low 03/26/2012 Medications Medication Sig Dispensed Refills Start Date End Date Status sertraline (ZOLOFT) 50 MG tablet Take 50 mg by mouth daily Active oxyCODONE (ROXICODONE) 5 MG tabletIndications:Pi lonidal abscess of cleft Take 1 tablet (5 mg) by mouth every 6 hours as needed for moderate to severe pain 15 tablet 04/04/2022 Active Active Problems No known active problems Social History Tobacco Use Types Packs/Day Years Used Date Smoking Tobacco: Never Smokeless Tobacco: Never Tobacco Cessation:Counseling Given: Not Answered Adolescent Education Answer Date Record ed Getting School Help Needed Not on file 01/20 Sex and Gender Information Value Date Recorded Sex Assigned at Not on file Gender Identity Not on file Sexual Orientation Not on file Last Filed Vital Signs Vital Sign Reading Time Taken Comments Blood Pressure 130/71 04/04/2022 5:46 PM RECREATION AIDE Pulse 79 04/04/2022 5:46 PM RECREATION AIDE Temperature 37.7 ??C (99.8 ??F) 04/04/2022 5:46 PM CS T Respiratory Rate 14 04/04/2022 3:09 PM RECREATION AIDE Oxygen Saturation 98% 04/04/2022 5:46 PM RECREATION AIDE Inhaled Oxygen Concentration - - Weight 94.2 kg (207 lb 9.6 oz) 04/04/2022 10:44 AM RECREATION AIDE Height 172.7 cm (5' 8) 04/04/2022 10:44 AM RECREATION AIDE Body Mass Index 31.57 04/04/2022 10:44 AM RECREATION AIDE Plan of Treatment Not on file Care Teams Guest Services Coordinator Relationship Specialty Start Date End Date Francesca Crane PCP - General Physician Debone Processing Supervisor 04/04/22
--- OUTSIDE RECORDS SUMMARY | 2023-08-30 06:10 | XMS_ITS | Encounter Summary ---
Author Name Unknown Organization [facility] Address [address] [place] [address] Care Team Providers Care Security Assessor Name Role Phone Unavailable Primary Care Provider Unavailabl e Reason for Referral * MRI/CAT/PET Scan (Routine) - Closed Specialty Diagnoses / Procedures Referred By Contac t Referred To Contact Radiology Diagnoses Malignant Neoplasm Of Testis Left (HCC) Procedures CT Abdomen Pelvis with IV Contrast Melissa Godinez APRN, C.N.P., D.N.P. [address] [place] [phone] [facility] Referral ID Status Reason Start Date Expiration Date Visits Re quested Visits Authorized [id number] Closed 02/21/2023 02/21/2024 1 1 Reason for Visit * MRI/CAT/PET Scan (Routine) - Closed Specialty Diagnoses / Procedures Referred By Contac t Referred To Contact Radiology Diagnoses Malignant Neoplasm Of Testis Left (HCC) Procedures CT Abdomen Pelvis with IV Contrast Melissa Godinez APRN, C.N.P., D.N.P. [address] [place] [phone] [facility] Referral ID Status Reason Start Date Expiration Date Visits Re quested Visits Authorized [id number] Closed 02/21/2023 02/21/2024 1 1 Encounter Details Date Type Department Care Team (Latest Contact Info) Description 08/16/2023 8:18 AM CDT - 08/16/2023 9:53 AM CDT Hospital Encounter Department of Radiology, [facility], in [place], [place] 200 [place] [phone] Melissa Godinez APRN, C.N.P., D.N.P. 200 [place] [phone] Malignant Neoplasm Of Testis Left (HCC) Discharge [...] your living situation today? I have a [facility] place to live 10/27/2022 Sex and Gender [...] Procedure Name Priority Date/Time Associated Diagnosis Comments CT ABDOMEN PELVIS WITH IV CONTRAST RAD - Routine (most inpatients and all outpatients) 08/16/2023 9:46 AM CDT Malignant Neoplasm Of Testis Left (HCC) documented in this encounter Results * CT Abdomen Pelvis with IV Contrast [...] APRN, C.N.P., D.N.P. I MG CT PROCEDURES documented in this encounter Visit Diagnoses Diagnosis Malignant Neoplasm Of Testis Left (HCC) documented in this encounter Administered Medications Inactive Administered Medications - up to 3 most recent administrations Medication Order MAR Action Action Date Dose Rate Site iohexoL 300 mg iodine/mL solution 1-200 mL (OMNIPAQUE) 1-200 mL, intravenous, Once in imaging, contrast, Starting on Lisa 08/16/23 at 0856, For 1 dose, Imaging Protocol Orders, Dose per Radiant Medication Guidelines Given 08/16/2023 9:23 AM CDT 140 mL sodium chloride (PF) 0.9 % injection 1-100 mL 1-100 mL, intravenous, Once, On Lisa 08/16/23 at 0915, For 1 dose, Imaging Protocol Orders, Dose per Radiant Medication Guidelines Given 08/16/2023 9:23 AM CDT 50 mL documented in this encounter
--- OUTSIDE RECORDS SUMMARY | 2023-08-30 06:10 | XMS_ITS | Encounter Summary ---
Author Name Unknown Organization [facility] Address [address] [place] [address] Care Team Providers Care Assistant Controller Name Role Phone Unavailable Primary Care Provider Unavailabl e Reason for Visit * Reason Onset Date Comments Pre-visit Intake 08/15/2023 Encounter Details Date Type Department Care Team (Latest Contact Info) Description 08/15/2023 12:30 PM CDT Clinical Communication Virtual Review in [place], [place] 200 [place] [phone] Pre-visit Intake Social History Tobacco Use Types Packs/Day Years [...] your living situation today? [facility] 10/27/2022 Sex and Gender Information Value Date Recorded Sex Assigned at Male 10/27/2022 1:06 PM CDT Gender Identity Male 10/27/2022 1:06 PM CDT Sexual Orientation Straight 10/27/2022 1: 06 PM CDT documented as of this encounter Plan of Treatment Not on file documented as of this encounter Visit Diagnoses Not on filedocumented in this encounter
--- OUTSIDE RECORDS SUMMARY | 2023-08-30 06:10 | XMS_ITS | Clinical Summary ---
Author Name Unknown Organization [place] [facility] Address [address] [place] [address]. [place] [address] Care Team Providers Care Institute Scientist Name Role Phone Francesca Crane Primary Care Provider [phone] Allergies Active Allergy Reactions Criticality Noted Date [...] Comments Blood Pressure 130/71 04/04/2022 5:46 PM LOG PROCESSOR OPERATOR Pulse 79 04/04/2022 5:46 PM LOG PROCESSOR OPERATOR Temperature 37.7 ??C (99.8 ??F) 04/04/2022 5:46 PM CS T Respiratory Rate 14 04/04/2022 3:09 PM LOG PROCESSOR OPERATOR Oxygen Saturation 98% 04/04/2022 5:46 PM LOG PROCESSOR OPERATOR Inhaled Oxygen Concentration - - Weight 94.2 kg (207 lb 9.6 oz) 04/04/2022 10:44 AM LOG PROCESSOR OPERATOR Height 172.7 cm (5' 8) 04/04/2022 10:44 AM LOG PROCESSOR OPERATOR Body Mass Index 31.57 04/04/2022 10:44 AM LOG PROCESSOR OPERATOR Plan of Treatment Health Maintenance Due Date Last Done Comments ADVANCE CARE PLANNING 2001 ANNUAL REVIEW OF HM ORDERS 2001 YEARLY PREVENTIVE VISIT 2001 HPV IMMUNIZATION (2 - Male 2-dose series) 05/17/2016 11/15/2015 HIV SCREENING 2016 HEPATITIS C SCREENING 09/14/2019 DTAP/TDAP/TD IMMUNIZATION (7 - Td or Tdap) 12/20/2022 12/20/2012, 09/14/2006, 08/26/2003, Additional history exists COVID-19 Vaccine ( season) 2022 06/07/2021, 09/17/2020, 08/27/2020 INFLUENZA VACCINE (#1) 2022 , 02/28/2022, 06/07/2021, Additional history exists PHQ-2 (once per calendar year) 2023 HEPATITIS B IMMUNIZATION Completed 003, 01/17/2002, 2001 Pneumococcal Vaccine: Pediatrics (0 to 5 Years) and At-Risk Patients (6 to 64 Years) Aged Out 09/15/2002, 01/17/2002, 2001 No longer eligible based on patient's age to complete this topic IPV IMMUNIZATION Completed 09/14/2006, , 01/17/2002, Additional history exists MENINGITIS IMMUNIZATION Aged Out 12/20/2012 No l onger eligible based on patient's age to complete this topic RSV MONOCLONAL ANTIBODY Aged Out No l onger eligible based on patient's age to complete this topic Care Teams Institute Scientist Relationship Specialty Start Date End Date Francesca Crane PCP - General Physician Podiatric Foot And Ankle Specialist 04/04/22
[2023-08-30 07:03] VITALS: BP 127/76; PULSE 81; RESP 16; O2SAT 96
== END 2023-08-30 07:18 | disposition home or self-care (01) ==
PROVIDERS: Emergency Provider Family Medicine; PCP Physician Assistant
DX: K52.9 Noninfective gastroenteritis and colitis, unspecified (principal)
CPT/HCPCS: 99283; J2405; J7120

== ENCOUNTER 2023-08-30 09:29 | Emergency (ER) | payer MEDICAID, SELFPAY ==
[2023-08-30 09:34] VITALS: BP 104/63; PULSE 111; RESP 14; TEMP 36.9; O2SAT 95; BMI 33.8
[2023-08-30 09:50] VITALS: O2SAT 98
[2023-08-30] MEDS: 0.9 % SODIUM CHLORIDE 1000 ml 1,000 ML IV ×2 (09:55→11:32)
--- NOTE | 2023-08-30 09:57 | CT_ITS ---
Patient: CIPRIANO KEVIN Facility:?[facility] Patient ID:?[id number] Site Patient ID:?[id number] Site :?2001 Study:?CT-Abdomen/Pelvis 106CC ISOVUE 370-08/30/2023 10:32:14 AM Ordering Physician:?DR. DEWEY Final Report: INDICATION: Mid abdominal pain. History of testicular cancer with left orchiectomy. COMPARISON: None TECHNIQUE: CT examination of the abdomen and pelvis was performed following the uneventful intravenous administration of 106 cc of Isovue 370. Thin section axial images were obtained from the lung bases through the pubic symphysis. Oral contrast was not administered. Please note that all CT scans at this facility use dose modulation, iterative reconstruction, and/or weight-based dosing when appropriate to reduce radiation dose to as low as reasonably achievable. FINDINGS: LUNG BASES: The lung bases as visualized appear normal.The heart size is normal at the lung bases. LIVER/BILIARY SYSTEM:The liver is normal in size and configuration. There is no focal mass and there is no intra- or extra hepatic biliary ductal dilatation.Hepatic steatosis. Normal-appearing gallbladder ADRENALS: Normal KIDNEYS, URETERS and BLADDER:The kidneys appear normal. No visible mass, calculus or hydronephrosis. The ureters and bladder as visualized appear normal. SPLEEN:Normal appearance. PANCREAS: Appears normal. RETROPERITONEUM and MESENTERY: There is no mass, adenopathy or aortic aneurysm. GASTROINTESTINAL SYSTEM: There is no evidence of diverticulitis, colitis, mechanical obstruction, or appendicitis. The small bowel as visualized appears normal. PELVIS: No mass, adenopathy or free fluid.Findings of a left orchiectomy OSSEOUS STRUCTURES and ABDOMINAL WALL: There is an age-appropriate appearance of the osseous structures.No significant abdominal wall defect. OTHER: No free fluid or free air. IMPRESSION: No visible cause for pain. Status post left orchiectomy. No findings of metastatic disease within the abdomen or pelvis. Please note that all CT scans at this facility use dose modulation, iterative reconstruction, and/or weight-based dosing when appropriate to reduce radiation dose to as low as reasonably achievable. Dictated by Jacobo Sales MD @ 08/30/2023 10:38:47 AM ----- ADDENDUM ----- Additional outside images have become available which I have reviewed. Three studies for [facility] in [place] were submitted from August 16, 2023, February 21, 2023 and October 27, 2022. The prior studies commented on lymph nodes. There are lymph nodes in the bilateral inguinal area on the current study that are similar in size and appearance to the prior 3 exams. The largest on the left by my measurement is 8 millimeters in short axis. The largest on the right by my measurement is 7 millimeters in short axis. These figures are unchanged since the most remote available study, by my measurement. There are lymph nodes identified in the retroperitoneum, primarily left para- aortic. None of these are enlarged by imaging criteria. For example, a left para-aortic lymph node on current study series 3, image 72 measures 7 millimeters in short axis which is unchanged compared to series 1, image 70 of the October 27, 2022 study. SUPPLEMENTARY IMPRESSION: Lymph nodes are unchanged in number and size. There is no evidence of metastatic disease by CT criteria. Dictated by Jacobo Sales MD @ Sep 18 2023 11:49AM Signed by:?Jacobo Sales MD @08/30/2023 10:38:47 AM (Electronic Signature)
--- NOTE | 2023-08-30 10:03 | ED.ABDPAIN ---
HPI - Abdominal Pain General Chief Complaint: Abdominal Pain Stated Complaint: Abdominal pain, vomiting Time Seen by Provider: 08/30/23 09:39 History of Present Illness HPI narrative: Patient is a 22-year-old gentleman who left the emergency room approximately 2 hours ago after being treated with normal saline and Zofran for nausea and vomiting. They had no fevers chills night sweats but the vomiting has worsened since going home. He no longer has diarrhea. He states his abdomen hurts in the midline with no radiation. The pain is moderate with primarily dull character. This has changed since being seen earlier today. Patient has history of testicular cancer in his finished his treatment. Patient takes no home medications. He states he has never been this sick in the past. Related Data Home Medications Medication Instructions Recorded Confirmed sertraline 100 mg tablet 100 mg PO DAILY 05/18/22 05/30/23 Allergies Allergy/AdvReac Type Severity Reaction Status Date / Time clavulanic acid Allergy Mild Hives Verified 08/30/23 10:37 Review of Systems Status of ROS Reports: 10 or more systems reviewed and unremarkable except as noted in History and below PFSH [facility] Medical History Testicular cancer ?C62.90 - Malignant neoplasm of unspecified testis, unspecified whether descended or undescended (ICD-10) COVID ?U07.1 - COVID-19 (ICD-10) Malignant neoplasm of descended left testis ?C62.12 - Malignant neoplasm of descended left testis (ICD-10) Pilonidal abscess ?L05.01 - Pilonidal cyst with abscess (ICD-10) Anxiety ?F41.9 - Anxiety disorder, unspecified (ICD-10) Depression ?F32.A - Depression, unspecified (ICD-10) Surgical History Status post chemotherapy ?Z92.21 - Personal history of antineoplastic chemotherapy (ICD-10) History of excision of pilonidal cyst ?Z98.890 - Other specified postprocedural states (ICD-10) History of tympanostomy ?Z98.890 - Other specified postprocedural states (ICD-10) History of orchiectomy ?Z90.79 - Acquired absence of other genital organ(s) (ICD-10) Social History Smoking Status: Never smoker How often do you have a drink containing alcohol: never AUDIT-C Alcohol total score: 0 Non-prescribed substance use: former substance user and marijuana (any form) Non-prescribed substance use details: stopped when diagnosed with cancer Caffeine: No Exam Narrative: Exam Narrative: EXAM GENERAL: Patient appears acutely agitated. EYES: No scleral icterus. LYMPH: No supraclavicular or cervical lymphadenopathy. SKIN: Visible skin seen during exam normal or with benign process only. EXT: No dependent lower extremity pedal edema. HEART: Regular rate and rhythm with no murmurs, rubs, or gallops. LUNGS: Clear to auscultation bilaterally with no crackles or wheezes. ABD: Hypoactive bowel sounds tender throughout with no rebound or masses. PSYCH: Good eye contact, speech is not pressured. Const: Vital Signs, click to edit/add: Vital Signs - 24 hr 08/30/23 09:34 Temperature 98.4 F Pulse Rate [Pulse Oximeter] 111 H Respiratory Rate 14 Blood Pressure [Ri ght Upper Arm] 104/63 Pulse Oximetry 95 Oxygen Delivery Me thod Room Air Course Course ED Course: Patient seen examined. 4 mg of IV Zofran given 1 L of normal saline given CBC CMP amylase lactate pending. CT abdomen pelvis pending Vital Signs Vital signs: Initial Vital Signs Temperature 98.4 F 08/30/23 09:34 Temperature Source Temporal Artery Scan 08/30/23 09:34 Pulse Rate 111 H 08/30/23 09:34 Pulse Rhythm Regular 08/30/23 09:34 Respiratory Rate 14 08/30/23 09:34 Blood Pressure 104/63 08/30/23 09:34 Blood Pressure Mean 76 08/30/23 09:34 Blood Pressure Position Sitting 08/30/23 09:34 Pulse Oximetry 95 08/30/23 09:34 Oxygen Delivery Method Room Air 08/30/23 09:34 Vital Signs Temperature 98.4 F 08/30/23 09:34 Pulse Rate 111 H 08/30/23 09:34 Respiratory Rate 14 08/30/23 09:34 Blood Pressure 104/63 08/30/23 09:34 Pulse Oximetry 95 08/30/23 09:34 Oxygen Delivery Method Room Air 08/30/23 09:34 Temperature 98.4 F 08/30/23 09:34 Pulse Rate 111 H 08/30/23 09:34 Respiratory Rate 14 08/30/23 09:34 Blood Pressure 104/63 08/30/23 09:34 Pulse Oximetry 95 08/30/23 09:34 Oxygen Delivery Method Room Air 08/30/23 09:34 Medications Administered Medications: Discontinued Medications Generic Name Dose Route Start Last Admin Trade Name Brady PRN Reason Stop Dose Admin Sodium Chloride 1,000 mls @ 1,000 mls/hr 08/30/23 10:00 08/30/23 09:55 0.9 % Sodium Chloride 1000 Ml IV 08/30/23 10:59 1,000 mls/hr .Q1H MACK Administration Lorazepam 1 mg 08/30/23 10:34 08/30/23 10:40 Lorazepam 2 Mg/Ml Inj IVP 08/30/23 10:35 1 mg ONCE ONE Administration Ondansetron HCl 4 mg 08/30/23 09:59 08/30/23 10:05 Ondansetron 2 Mg/Ml Inj IVP 08/30/23 10:00 4 mg ONCE ONE Administration MDM - Abdominal Pain MDM Narrative Medical decision making narrative: Patient is a 22-year-old gentleman who was seen earlier this morning and treated for gastroenteritis. He comes in with worsening nausea and vomiting having abdominal pain. We did do a CT with abdomen pelvis which showed no acute abnormalities. White count does show some mild elevation in the white blood cell count. The rest of labs are normal. I did given additional 2 L of normal saline a dose of Ativan and 0.4 mg of Zofran. He is feeling better and I do think it is reasonable at this time discharge home with close outpatient follow-up to advance his diet activity as tolerated you Zofran and Ativan as needed for the nausea and vomiting for the next day or 2. Follow-up with his primary physician as needed. Differential diagnosis includes but not limited to acute diverticulitis appendicitis cholecystitis gastroenteritis small-bowel obstruction. Lab Data Labs: Lab Results 08/30/23 Range/Units 09:53 WBC 15.84 H (4.50-11.00) K/uL RBC 5.36 (4.30-5.90) m/uL Hgb 15.3 (13.5-17.5) gm/dL Hct 46.5 (37.0-53.0) % MCV 87 (80-100) fL MCH 29 (26-34) pg MCHC 33 (32-36) gm/dL RDW Coeff of Jaime 13.2 (11.5-15.5) % Plt Count 214 (140-440) K/uL Neut % (Auto) 93.6 H (42.0-72.0) % Lymph % (Auto) 2.3 L (20-44) % Josephine % (Auto) 3.8 (0.0-11.0) % Eos % (Auto) 0.1 (0.0-7.0) % Baso % (Auto) 0.1 (0.0-3.0) % Neut # (Auto) 14.80 H (1.7-7.0) K/uL Lymph # (Auto) 0.40 L (0.90-2.90) K/uL Josephine # (Auto) 0.60 (0.00-0.90) K/UL Eos # (Auto) 0.00 (0.00-0.50) K/uL Baso # (Auto) 0.00 (0.00-0.30) K/uL Abs Immat Gran (auto) 0.00 (0.00-0.30) K/uL Imm/Tot Granulo (auto) 0.1 % Sodium 141 (135-149) mmol/L Potassium 4.0 (3.6-5.1) mmol/L Chloride 105 (96-114) mmol/L Carbon Dioxide 27 (20-32) mmol/L Anion Gap 9 (7-15) mEq/L BUN 19 (5-24) mg/dL Creatinine 0.8 (0.5-1.5) mg/dL Estimated Creat Clear 136.56 Estimated GFR 129 ml/min Glucose 115 (60-115) mg/dL Lactate 1.9 (0.5-1.9) mmol/L Calcium 9.5 (8.4-10.6) mg/dL Total Bilirubin 0.7 (0.1-1.5) mg/dL AST 38 H (12-35) U/L ALT 55 H (4-50) U/L Alkaline Phosphatase 70 (40-150) U/L Total Protein 8.0 (6.0-8.3) g/dL Albumin 4.8 (3.3-5.0) g/dL Amylase 75 (18-89) U/L SARS-CoV-2 (PCR) Negative SARS-CoV-2 (Negative) Influenza Type A (PCR) Negative PCR FLU A (Negative) Influenza Type B (PCR) Negative PCR FLU B (Negative) RSV (PCR) Negative PCR RSV (Negative) Discharge Plan Discharge Clinical Impression: Gastroenteritis Patient Disposition: Home, Self-Care Condition: Stable Instructions: Gastroenteritis (ED) Additional Instructions: Komal as direct Ativan as directed Advanced diet activity as tolerated Follow-up with your doctor if not improved. Activity Level: No Restrictions Discharge Diet: Regular Prescriptions: No Action sertraline 100 mg tablet 100 mg PO DAILY Patient Comments: TAKE 1 TABLET (100 MG) BY MOUTH EVERY MORNING. DOSE INCREASE 05/02/22 Follow Up/Referrals: Francesca Crane PA [Primary Care Provider] - Stand Alone Forms: MyHealth Info Instructions
--- OUTSIDE RECORDS SUMMARY | 2023-08-30 10:03 | XMS_ITS | Clinical Summary ---
Author Name Unknown Organization [facility] Address [address] [place] [address] Care Team Providers Care Pre Press Operator Name Role Phone Unavailable Primary Care Provider Unavailabl e Source Comments Patient records contain information from all sites at [facility]. For routine questions regarding patient records, call [phone] during business hours, M-F 8:00 AM - 5:00 PM Central Time. Record requests for emergency care only can be directed to [phone] at any time.[facility] Allergies Active Allergy Reactions Criticality Noted Date [...] CDT Office Visit Department of Urology in [place], [place] [address] [place] [address] Myesha Pope M.D. Malignant Neoplasm Of Testis Left (HCC) (Primary Dx) 08/16/2023 9:54 AM CDT - 08/16/2023 11:59 PM CDT Hospital Encounter Department of Radiology, [place], [place] [address] [place] [phone] Melissa Godinez APRN, C.N.P., D.N.P. Malignant Neoplasm Of Testis Left (HCC) Discharge Disposition: Home or Self Care 08/16/2023 8:18 AM CDT - 08/16/2023 9:53 AM CDT Hospital Encounter Department of Radiology, [place], [place] [address] [place] [phone] Melissa Godinez APRN, C.N.P., D.N.P. Malignant Neoplasm Of Testis Left (HCC) Discharge Disposition: Home or Self Care 08/16/2023 7:54 AM CDT - 08/16/2023 8:17 AM CDT Hospital Encounter Department of Radiology, [facility] in [place], [place] [address] [place] [phone] Melissa Godinez APRN, C.N.P., D.N.P. Malignant Neoplasm Of Testis Left (HCC) Discharge Disposition: Home or Self Care 08/16/2023 7:30 AM CDT - 08/16/2023 7:53 AM CDT Hospital Encounter Department of Laboratory Medicine and Pathology, [facility] in [place], [place] [address] [place] [phone] Melissa Godinez APRN, C.N.P., D.N.P. Malignant Neoplasm Of Testis Left (HCC) Discharge Disposition: Home or Self Care 08/15/2023 12:30 PM CDT Clinical Communication Virtual Review in [place], [place] [address] [place] [phone] Pre-visit Intake from Last 3 Months Family [...] this topic Medical Devices Implanted Type Area Cement Mason Helper Device Identifier Shelf Expiration Date Model / [...] (Tumor Marker) (08/16/2023 7:50 AM CDT) Pathologist [facility] Beta-HCG, Quantitative, S <0.6 <1.4 IU/L 08/16/2023 2:01 PM CDT [facility] Comment: ----ADDITIONAL INFORMATION---- This test has been modified from the cigarette maker's instructions. Its performance characteristics were determined by [facility] in a manner consistent with CLIA requirements. This test has not been cleared or approved by the U.S. Food and Drug Administration. The testing method is an electrochemiluminescence assay manufactured by [employer] and performed on the Modular or Milind system. Values obtained with different assay methods or kits may be different and cannot be used interchangeably. Test results cannot be interpreted as absolute evidence for the presence or absence of malignant disease. Blood (Blood, Venous) 08/16/2023 7:50 AM CDT 08/16/2023 1:23 PM CDT Richi Mccormick APRNP., D.N.P. L AB BLOOD ADD-ON Performing Organization Address City/State/[facility] Co de Phone Number [facility] [address] [place] [address] [facility] [address] [place] [address] * AFP (Alpha-Fetoprotein), Tumor Marker (08/16/2023 7:50 AM CDT) Pathologist [facility] Alpha-Fetoprotein, Tumor Marker, S 2.8 <8.4 ng/mL 08/16/2023 1:59 PM CDT [facility] Comment: ----ADDITIONAL INFORMATION---- In this Mike [...] method is an immunoenzymatic assay manufactured by [employer]. and is tested on the [employer] DxI 800. Values obtained with different assay [...] L AB BLOOD ADD-ON Performing Organization Address City/[facility]/ZIP Co de Phone Number [facility] [address] [place] [address] [facility] [address] [place] [address] * LD (Lactate Dehydrogenase) (08/16/2023 7:50 AM CDT) Lactate Dehydrogenase (LD), S 138 122 - 222 U/L 08/16/2023 9:05 AM CDT DTL Blood (Blood, Venous) 08/16/2023 7:50 AM CDT 08/16/2023 8:33 AM CDT Melissa Godinez APRN, Willie.N.P., D.N.P. L AB BLOOD NON ADD-ON Performing Organization Address City/[facility]/ZIP Co de Phone Number [facility] [address] [place], [place] [address] DTL [facility] [address] [place] [address] * Creatinine with Estimated GFR (08/16/2023 7:50 AM CDT) Creatinine 0.98 0.74 - 1.35 mg/dL 08/16/2023 9:05 AM CDT DTL Estimated GFR (eGFR) >90 >=60 mL/min/BSA 08/16/2023 9:05 AM CDT DTL Comment: Estimated GFR calculated using the 2020 CKD_EPI creatinine equation. Blood (Blood, Venous) 08/16/2023 7:50 AM CDT 08/16/2023 8:33 AM CDT Melissa Godinez APRN, C.N.P., D.N.P. L AB BLOOD ADD-ON [facility] [address] [place] [address], [facility] [address] [place] [address] from Last 3 Months
[2023-08-30 10:04] LABS: Lactate* 1.9 mmol/L (0.5-1.9)
--- OUTSIDE RECORDS SUMMARY | 2023-08-30 10:04 | XMS_ITS | Clinical Summary ---
Author Name Unknown Organization [facility] Address [address] [place] [address]. [place] [address] Care Team Providers Care Core Analysis Operator Name Role Phone Francesca Crane Primary Care Provider [phone] Allergies Active Allergy Reactions Criticality Noted Date [...] Comments Blood Pressure 130/71 04/04/2022 5:46 PM AUTOMOTIVE COLLISION REPAIR INSTRUCTOR Pulse 79 04/04/2022 5:46 PM AUTOMOTIVE COLLISION REPAIR INSTRUCTOR Temperature 37.7 ??C (99.8 ??F) 04/04/2022 5:46 PM CS T Respiratory Rate 14 04/04/2022 3:09 PM AUTOMOTIVE COLLISION REPAIR INSTRUCTOR Oxygen Saturation 98% 04/04/2022 5:46 PM AUTOMOTIVE COLLISION REPAIR INSTRUCTOR Inhaled Oxygen Concentration - - Weight 94.2 kg (207 lb 9.6 oz) 04/04/2022 10:44 AM AUTOMOTIVE COLLISION REPAIR INSTRUCTOR Height 172.7 cm (5' 8) 04/04/2022 10:44 AM AUTOMOTIVE COLLISION REPAIR INSTRUCTOR Body Mass Index 31.57 04/04/2022 10:44 AM AUTOMOTIVE COLLISION REPAIR INSTRUCTOR Plan of Treatment Health Maintenance Due Date Last Done Comments ADVANCE CARE PLANNING 2001 ANNUAL REVIEW OF HM ORDERS 2001 YEARLY PREVENTIVE VISIT 2001 HPV IMMUNIZATION (2 - Male 2-dose series) 05/17/2016 11/15/2015 HIV SCREENING 2016 HEPATITIS C SCREENING 09/14/2019 DTAP/TDAP/TD IMMUNIZATION (7 - Td or Tdap) 12/20/2022 12/20/2012, 09/14/2006, 08/26/2003, Additional history exists COVID-19 Vaccine ( season) 2022 06/07/2021, 09/17/2020, 08/27/2020 PHQ-2 (once per calendar year) 2023 INFLUENZA VACCINE (Season Ended) 2023 04/10/2022, 02/28/2022, 06/07/2021, Additional history exists HEPATITIS B IMMUNIZATION Completed 003, 01/17/2002, 2001 [...] age to complete this topic Care Teams Core Analysis Operator Relationship Specialty Start Date End Date Francesca Crane PCP - General Physician Emulsion Operator 04/04/22
--- OUTSIDE RECORDS SUMMARY | 2023-08-30 10:04 | XMS_ITS | Encounter Summary ---
Author Name Unknown Organization [facility] Address [address] [place] [address] Care Team Providers Care Rail Technician Name Role Phone Unavailable Primary Care Provider Unavailabl e Reason for Referral * Outpatient (Routine) - Authorized Specialty Diagnoses / Procedures Referred By Stanley t Referred To Contact Urology Riri Chacon M.D., M.B.A. [address] [place] [phone] Myesha Pope M.D. [address] [place] [phone] Referral ID Status Reason Start Date Expiration Date V isits Requested Visits Authorized [id number] Authorized 08/16/2023 02/14/2025 1 1 * MRI/CAT/PET Scan (Routine) - Pending Review Specialty Diagnoses / Procedures Referred By Contac t Referred To Contact Radiology Diagnoses Malignant Neoplasm Of Testis Left (HCC) Procedures CT Abdomen Pelvis with IV Contrast Riri Chacon M.D., M.B.A. [address] [place] [phone] [facility] Referral ID Status Reason Start Date Expiration Date V isits Requested Visits Authorized [id number] Pending Review 08/16/2023 08/15/2024 1 1 * Outpatient (Routine) - Authorized Specialty Diagnoses / Procedures Referred By Stanley fontana Referred To Contact Diagnoses Malignant Neoplasm Of Testis Left (HCC) Procedures DX Chest AP or PA and Lateral 2 Views Riri Chacon M.D., M.B.A. [address] [place] [phone] [facility] Referral ID Status Reason Start Date Expiration Date V isits Requested Visits Authorized [id number] Authorized 08/16/2023 08/15/2024 1 1 Reason for Visit * Outpatient (Routine) - Closed Specialty Diagnoses / Procedures Referred By Stanley fontana Referred To Contact Urology Myesha Pope M.D. [address] [place] [phone] Myesha Pope M.D. [address] [place] [phone] Referral ID Status Reason Start Date Expiration Date Visits Re quested Visits Authorized [id number] Closed 04/19/2023 04/18/2026 1 1 Encounter Details Date Type Department Care Team (Late st Contact Info) Description 08/16/2023 2:00 PM CDT Office Visit Department of Urology in [place], [place] [address] [place] [phone] Myesha Pope M.D. 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
--- OUTSIDE RECORDS SUMMARY | 2023-08-30 10:04 | XMS_ITS | Encounter Summary ---
Author Name Unknown Organization [facility] Address [address] [place] [address] Care Team Providers Care Cleaner Touch Up Worker Name Role Phone Unavailable Primary Care Provider Unavailabl e Reason for Referral * Outpatient (Routine) - Closed Specialty Diagnoses / Procedures Referred By Ellaac t Referred To Contact Diagnoses Malignant Neoplasm Of Testis Left (HCC) Procedures DX Chest AP or PA and Lateral 2 Views Melissa Godinez APRN, C.N.P., D.N.P. [address] [place] [phone] [facility] Referral ID Status Reason Start Date Expiration Date Visits Re quested Visits Authorized [id number] Closed 02/21/2023 02/21/2024 1 1 Reason for Visit * Outpatient (Routine) - Closed Specialty Diagnoses / Procedures Referred By Contac t Referred To Contact Diagnoses Malignant Neoplasm Of Testis Left (HCC) Procedures DX Chest AP or PA and Lateral 2 Views Melissa Godinez APRN, C.N.P., D.N.P. [address] [place] [phone] [facility] Referral ID Status Reason Start Date Expiration Date Visits Re quested Visits Authorized [id number] Closed 02/21/2023 02/21/2024 1 1 Encounter Details Date Type Department Care Team (Latest Contact Info) Description 08/16/2023 7:54 AM CDT - 08/16/2023 8:17 AM CDT Hospital Encounter Department of Radiology, [facility], in [place], [place] [address] [place] [address] Melissa Godinez APRN, C.N.P., D.N.P. [address] [place] [address] Malignant Neoplasm Of Testis Left (HCC) Discharge [...] your living situation today? I have a [facility] place to live 10/27/2022 Sex and [...]
--- OUTSIDE RECORDS SUMMARY | 2023-08-30 10:04 | XMS_ITS | Encounter Summary ---
Author Name Unknown Organization [facility] Address [address] [place] [address] Care Team Providers Care Aoc Operations Intelligence Officer Name Role Phone Unavailable Primary Care Provider Unavailabl e Reason for Visit * Reason Onset Date Comments Pre-visit Intake 08/15/2023 Encounter Details Date Type Department Care Team (Latest Contact Info) Description 08/15/2023 12:30 PM CDT Clinical Communication Virtual Review in [place], [place] 200 [place] [address] Pre-visit Intake Social History Tobacco Use Types [...] your living situation today? I have a [facility] place to live 10/27/2022 Sex and [...]
--- OUTSIDE RECORDS SUMMARY | 2023-08-30 10:04 | XMS_ITS ---
Author Name Unknown Organization [facility] Address [address] [place] [address] Care Team Providers Care Coreroom Foundry Laborer Name Role Phone Unavailable Unavailable Unavailable Surgery Details Not on file Complications Check Surgery Details section. Procedure Estimated Blood Loss Check Surgery Details section. Procedure Findings Check Surgery Details section. Procedure Specimens Taken Check Surgery Details section.
--- OUTSIDE RECORDS SUMMARY | 2023-08-30 10:04 | XMS_ITS | Encounter Summary ---
Author Name Unknown Organization [facility] Address [address] [place] [address] Care Team Providers Care Denture Model Maker Name Role Phone Unavailable Primary Care Provider Unavailabl e Encounter Details Date Type Department Care Team (Latest Contact Info) Description 08/16/2023 7:30 AM CDT - 08/16/2023 7:53 AM CDT Hospital Encounter Department of Laboratory Medicine and Pathology, [facility], in [place], [place] [address] [place] [address] Melissa Godinez APRN, C.N.P., D.N.P. [address] [place] [phone] Malignant Neoplasm Of Testis Left (HCC) Discharge [...] your living situation today? I have a [facility] place to live 10/27/2022 Sex and [...] APRN, C.N.P., D.N.P. L AB BLOOD ADD-ON [facility] [address] [place] [address], [facility] DTL [facility] [address] [place] [address] * BHCG (Beta-Human Chorionic Gonadotropin), Quantitative (Tumor Marker) (08/16/2023 7:50 AM CDT) Beta-HCG, Quantitative, S <0.6 <1.4 IU/L 08/16/2023 2:01 PM CDT [facility] Comment: ----ADDITIONAL INFORMATION---- This test has been modified from the inventory manager's instructions. Its performance characteristics were determined by [facility] in a manner consistent with [...] APRN, C.N.P., D.N.P. L AB BLOOD ADD-ON [facility] [address] [place] [address] [facility] [address] [place] [address] * AFP (Alpha-Fetoprotein), Tumor Marker (08/16/2023 7:50 AM CDT) Pathologist [facility] Alpha-Fetoprotein, Tumor Marker, S 2.8 <8.4 ng/mL 08/16/2023 1:59 PM CDT [facility] Comment: ----ADDITIONAL INFORMATION---- In this Mike Ludlow assay AFP concentrations are <8.4 ng/mL for [...] method is an immunoenzymatic assay manufactured by [employer]. and is tested on the [employer] DxI 800. Values obtained with different assay [...] L AB BLOOD ADD-ON Performing Organization Address City/[facility]/ZIP Co de Phone Number [facility] [address] [place] [address] [facility] [address] [place] [address] * LD (Lactate Dehydrogenase) (08/16/2023 7:50 AM CDT) Lactate Dehydrogenase (LD), S 138 122 - 222 U/L 08/16/2023 9:05 AM CDT DTL Blood (Blood, Venous) 08/16/2023 7:50 AM CDT 08/16/2023 8:33 AM CDT Mleissa Godinez APRN, Willie.N.P., D.N.P. L AB BLOOD NON ADD-ON Performing Organization Address City/[facility]/ZIP Co de Phone Number [facility] [address] [place] [address], [facility] DTL [facility] [address] [place] [address] documented in this encounter Visit Diagnoses Diagnosis Malignant Neoplasm Of Testis Left (HCC) documented in this encounter
--- OUTSIDE RECORDS SUMMARY | 2023-08-30 10:04 | XMS_ITS | Encounter Summary ---
Author Name Unknown Organization [facility] Address [address] [place] [address] Care Team Providers Care Paster Operator Name Role Phone Unavailable Primary Care Provider Unavailabl e Reason for Referral * Outpatient (Routine) - Closed Specialty Diagnoses / Procedures Referred By Stanley fontana Referred To Contact Diagnoses Malignant Neoplasm Of Testis Left (HCC) Procedures US Scrotum with Doppler Melissa Godinez APRN, C.N.P., D.N.P. [address] [place] [phone] [facility] Referral ID Status Reason Start Date Expiration Date Visits Re quested Visits Authorized [id number] Closed 02/21/2023 02/21/2024 1 1 Reason for Visit * Outpatient (Routine) - Closed Specialty Diagnoses / Procedures Referred By Stanley fontana Referred To Contact Diagnoses Malignant Neoplasm Of Testis Left (HCC) Procedures US Scrotum with Doppler Melissa Godinez APRN, C.N.P., D.N.P. [address] [place] [phone] [facility] Referral ID Status Reason Start Date Expiration Date Visits Re quested Visits Authorized [id number] Closed 02/21/2023 02/21/2024 1 1 Encounter Details Date Type Department Care Team (Latest Contact Info) Description 08/16/2023 9:54 AM CDT - 08/16/2023 11:59 PM CDT Hospital Encounter Department of Radiology, [facility], in [place], [place] [address] [place] [address] Melissa Godinez, ANNE, C.N.P., D.N.P. [address] [place] [address] Malignant Neoplasm Of Testis Left (HCC) Discharge [...] your living situation today? I have a [facility] place to live 10/27/2022 Sex and Gender [...]
--- OUTSIDE RECORDS SUMMARY | 2023-08-30 10:04 | XMS_ITS | Referral Summary ---
Author Name Unknown Organization [facility] Address [address] [place] [address] Care Team Providers Care Government Teacher Name Role Phone Unavailable Primary Care Provider Unavailabl e Source Comments Patient records contain information from all sites at [facility]. For routine questions regarding patient records, call [phone] during business hours, M-F 8:00 AM - 5:00 PM Central Time. Record requests for emergency care only can be directed to [phone] at any time.[facility] Encounters Date Type Department Care Team Description 08/16/2023 7:30 AM CDT - 08/16/2023 7:53 AM CDT Hospital Encounter Department of Laboratory Medicine and Pathology, [facility] in [place], [place] [address] [place] [phone] Melissa Godinez APRN, C.N.P., D.N.P. Malignant Neoplasm Of Testis Left (HCC) Discharge Disposition: Home or Self Care 08/16/2023 7:54 AM CDT - 08/16/2023 8:17 AM CDT Hospital Encounter Department of Radiology, [facility] in [place], [place] [address] [place] [phone] Melissa Godinez APRN, C.N.P., D.N.P. Malignant Neoplasm Of Testis Left (HCC) Discharge Disposition: Home or Self Care 08/16/2023 9:54 AM CDT - 08/16/2023 11:59 PM CDT Hospital Encounter Department of Radiology, [facility] in [place], [place] [address] [place] [address] Melissa Godinez APRN C.N.P., D.N.P. Malignant Neoplasm Of Testis Left (HCC) Discharge Disposition: Home or Self Care 08/16/2023 8:18 AM CDT - 08/16/2023 9:53 AM CDT Hospital Encounter Department of Radiology, [facility], in [place], [place] [address] [place] [phone] Melissa Godinez APRN C.N.P., D.N.P. Malignant Neoplasm Of Testis Left (HCC) Discharge Disposition: Home or Self Care 08/16/2023 2:00 PM CDT Office Visit Department of Urology in [place], [place] [address] [place] [phone] Myesha Pope M.D. Malignant Neoplasm Of Testis Left (HCC) (Primary Dx) 08/15/2023 12:30 PM CDT Clinical Communication Virtual Review in [place], [place] 200 [place] [address] Pre-visit Intake from Last 3 Months Allergies [...] your living situation today? I have a [facility] place to live 10/27/2022 Sex and Gender Information Value Date Recorded Sex Assigned at Male 10/27/2022 1:06 PM CDT Gender Identity Male 10/27/2022 1:06 PM CDT Sexual Orientation Straight 10/27/2022 1: 06 PM CDT Plan of Treatment Not on file Medical Devices Implanted Type Area Access Liaison Device Identifier Shelf Expiration Date Model / [...] <0.6 <1.4 IU/L 08/16/2023 2:01 PM CDT [facility] Comment: ----ADDITIONAL INFORMATION---- This test has been modified from the environmental advisor's instructions. Its performance characteristics were determined by [facility] in a manner consistent with CLIA [...] APRN C.N.PAriella, Calos.Olayinka.PAriella L AB BLOOD ADD-ON [facility] [address] [place] [address] [facility] [address] [place] [address] * AFP (Alpha-Fetoprotein), Tumor Marker (08/16/2023 7:50 AM CDT) Pathologist [facility] Alpha-Fetoprotein, Tumor Marker, S 2.8 <8.4 ng/mL 08/16/2023 1:59 PM CDT [facility] Comment: ----ADDITIONAL INFORMATION---- In this Mike Islip assay AFP concentrations are <8.4 ng/mL for [...] method is an immunoenzymatic assay manufactured by [employer]. and is tested on the [employer] DxI 800. Values obtained with different assay [...] Mccormick APRN.N.P., D.N.P. L AB BLOOD ADD-ON [facility] [address] [place] [address] [facility] [address] [place] [address] * LD (Lactate Dehydrogenase) (08/16/2023 7:50 AM CDT) Lactate Dehydrogenase (LD), S 138 122 - 222 U/L 08/16/2023 9:05 AM CDT DTL Blood (Blood, Venous) 08/16/2023 7:50 AM CDT 08/16/2023 8:33 AM CDT Willie Mccormick APRN.N.P., D.N.P. L AB BLOOD NON ADD-ON Performing Organization Address City/[facility]/ZIP Co de Phone Number [facility] [address] [place] [address], [facility] DTL [facility] [address] [place] [address] * Creatinine with Estimated GFR (08/16/2023 7:50 AM CDT) Creatinine 0.98 0.74 - 1.35 mg/dL 08/16/2023 9:05 AM CDT DTL Estimated GFR (eGFR) >90 >=60 mL/min/BSA 08/16/2023 9:05 AM CDT DTL Comment: Estimated GFR calculated using the 2020 CKD_EPI creatinine equation. Blood (Blood, Venous) 08/16/2023 7:50 AM CDT 08/16/2023 8:33 AM CDT Willie Mccormick APRN.N.P., D.N.P. L AB BLOOD ADD-ON [facility] [address] [place] [address], [facility] DTL [facility] [address] [place] [address] from Last 3 Months
--- OUTSIDE RECORDS SUMMARY | 2023-08-30 10:04 | XMS_ITS | Referral Summary ---
Author Name Unknown Organization [facility] Address [address] [place] [address]. [place] [address] Care Team Providers Care Specification Writer Name Role Phone Francesca Crane Primary Care Provider [phone] Allergies Active Allergy Reactions Criticality Noted Date [...] Comments Blood Pressure 130/71 04/04/2022 5:46 PM SYSTEMS SPEC Pulse 79 04/04/2022 5:46 PM SYSTEMS SPEC Temperature 37.7 ??C (99.8 ??F) 04/04/2022 5:46 PM CS T Respiratory Rate 14 04/04/2022 3:09 PM SYSTEMS SPEC Oxygen Saturation 98% 04/04/2022 5:46 PM SYSTEMS SPEC Inhaled Oxygen Concentration - - Weight 94.2 kg (207 lb 9.6 oz) 04/04/2022 10:44 AM SYSTEMS SPEC Height 172.7 cm (5' 8) 04/04/2022 10:44 AM SYSTEMS SPEC Body Mass Index 31.57 04/04/2022 10:44 AM SYSTEMS SPEC Plan of Treatment Not on file Care Teams Specification Writer Relationship Specialty Start Date End Date Francesca Crane PCP - General Physician Icu Registered Nurse 04/04/22
--- OUTSIDE RECORDS SUMMARY | 2023-08-30 10:04 | XMS_ITS | Clinical Summary ---
Author Name Unknown Organization [facility] [employer] [facility] Address [place], [place] [address] Care Team Providers Care Slitter And Rewinder Name Role Phone Pcp, No Primary Care [...] Department Care Team Description 06/22/2023 1:10 PM BEER RUNNER Office Visit [facility] [address] [place] [address] Gauri Roldan PA Concerns (Last week- Bowel movement was super dark- but not black, since then stools have been very light since and loose- abdomen feels full/bloated. Still having bowel movements. ) 06/22/2023 Travel 06/07/2023 9:00 AM BEER RUNNER Office Visit [facility] [address] [place], [place] [phone] Helena Birch MD Headache (Headache started the . Thinks stress related. He has a lot going on in life. Thinks body is still recovery from radiation. ) 06/06/2023 Travel from Last 3 Months Immunizations Name Administration Dates Next Due COVID-19 vaccine ([employer] 30mcg/0.3mL) 12YO+ CHRISTOPHER-SUCROSE PF, MDV 06/07/2021 [...] Sex Assigned at Male 06/05/2021 4:12 PM BEER RUNNER Gender Identity Male 06/05/2021 4:12 PM BEER RUNNER Sexual Orientation Not on file Obstetrics History Last Filed Vital Signs Vital Sign Reading Time Taken Comments Blood Pressure 120/81 06/22/2023 1:14 PM BEER RUNNER Pulse 67 06/22/2023 1:14 PM BEER RUNNER Temperature 37.2 ??C (99 ??F) 03/06/2022 3:09 PM BEER RUNNER Respiratory Rate 12 03/06/2022 3:09 PM BEER RUNNER Oxygen Saturation 97% 06/22/2023 1:14 PM BEER RUNNER Inhaled Oxygen Concentration - - Weight 94.3 kg (208 lb) 06/22/2023 1:14 PM BEER RUNNER Height 171 cm (5' 7.32) 06/07/2023 9:03 AM BEER RUNNER Body Mass Index 32.27 06/07/2023 9:03 AM BEER RUNNER Plan of Treatment Health Maintenance Due Date [...] Code Status Discussion: Reviewed Preferences Care Teams Slitter And Rewinder Relationship Specialty Start Date End Date Pcp, No . PCP - General 03/20/23
--- OUTSIDE RECORDS SUMMARY | 2023-08-30 10:04 | XMS_ITS | Encounter Summary ---
Author Name Unknown Organization [facility] Address [address] [place] [address] Care Team Providers Care Stem Crusher Name Role Phone Unavailable Primary Care Provider Unavailabl e Reason for Referral * MRI/CAT/PET Scan (Routine) - Closed Specialty Diagnoses / Procedures Referred By Contac t Referred To Contact Radiology Diagnoses Malignant Neoplasm Of Testis Left (HCC) Procedures CT Abdomen Pelvis with IV Contrast Melissa Godinez APRN, C.N.P., D.N.P. [address] [place] [phone] [facility] Referral ID Status Reason Start Date Expiration Date Visits Re quested Visits Authorized [id number] Closed 02/21/2023 02/21/2024 1 1 Reason for Visit * MRI/CAT/PET Scan (Routine) - Closed Specialty Diagnoses / Procedures Referred By Contac t Referred To Contact Radiology Diagnoses Malignant Neoplasm Of Testis Left (HCC) Procedures CT Abdomen Pelvis with IV Contrast Melissa Godinez APRN, C.N.P., D.N.P. [address] [place] [phone] [facility] Referral ID Status Reason Start Date Expiration Date Visits Re quested Visits Authorized [id number] Closed 02/21/2023 02/21/2024 1 1 Encounter Details Date Type Department Care Team (Latest Contact Info) Description 08/16/2023 8:18 AM CDT - 08/16/2023 9:53 AM CDT Hospital Encounter Department of Radiology, [facility], in [place], [place] 200 [place] [address] Melissa Godinez APRN, C.N.P., D.N.P. 200 [place] [address] Malignant Neoplasm Of Testis Left (HCC) Discharge [...] your living situation today? I have a [facility] place to live 10/27/2022 Sex and [...]
[2023-08-30] MEDS: ONDANSETRON 2 MG/ML inj 4 MG IVP (10:05)
[2023-08-30 10:08] LABS: Basophils Percent Auto 0.1 % (0.0-3.0); Eosinophils Percent Auto 0.1 % (0.0-7.0); Hematocrit 46.5 % (37.0-53.0); Hemoglobin* 15.3 gm/dL (13.5-17.5); Immature Granulocytes Pct Auto 0.1 %; Lymphocytes Percent Auto 2.3 % (20-44); Mean Corpuscular HGB Conc 33 gm/dL (32-36); Mean Corpuscular Hemoglobin 29 pg (26-34); Mean Corpuscular Volume 87 fL (80-100); Monocytes Percent Auto 3.8 % (0.0-11.0); Neutrophils Percent Auto 93.6 % (42.0-72.0); Platelet Count* 214 K/uL (140-440); RDW Coefficient of Variation % 13.2 % (11.5-15.5); Red Blood Count 5.36 m/uL (4.30-5.90); White Blood Count* 15.84 K/uL (4.50-11.00)
[2023-08-30 10:19] LABS: Slide Review Reflex No
[2023-08-30 10:20] LABS: Albumin* 4.8 g/dL (3.3-5.0); Chloride* 105 mmol/L (96-114)
[2023-08-30 10:21] LABS: Sodium* 141 mmol/L (135-149)
[2023-08-30 10:23] LABS: Alkaline Phosphatase* 70 U/L (40-150); Amylase* 75 U/L (18-89); Anion Gap 9 mEq/L (7-15); Aspartate Amino Transferase* 38 U/L (12-35); Bilirubin Total* 0.7 mg/dL (0.1-1.5); Blood Urea Nitrogen* 19 mg/dL (5-24); Carbon Dioxide* 27 mmol/L (20-32); Creatinine* 0.8 mg/dL (0.5-1.5); Est. Creatinine Clearance* 136.56; Estimated Glomerular Filt Rate 129 ml/min
[2023-08-30 10:24] LABS: Alanine Aminotransferase* 55 U/L (4-50); Calcium* 9.5 mg/dL (8.4-10.6); Glucose* 115 mg/dL (60-115)
[2023-08-30] MEDS: LORazepam 2 MG/ML inj 1 MG IVP (10:40)
[2023-08-30 10:43] LABS: PCR FLU A Negative PCR FLU A (Negative); PCR FLU B Negative PCR FLU B (Negative); PCR RSV Negative PCR RSV (Negative); SARS PCR* Negative SARS-CoV-2 (Negative)
[2023-08-30 11:01] VITALS: BP 112/70; PULSE 116; RESP 14; O2SAT 97
--- NOTE | 2023-08-30 11:51 | ED.NURSE ---
pt up to bathroom, tolerated activity well
[2023-08-30 12:20] VITALS: BP 104/63; PULSE 102; RESP 14; TEMP 36.9
== END 2023-08-30 12:21 | disposition home or self-care (01) ==
PROVIDERS: Emergency Provider Internal Medicine; PCP Physician Assistant
DX: K52.9 Noninfective gastroenteritis and colitis, unspecified (principal)
CPT/HCPCS: 36415; 74177; 80053; 82150; 83605; 85025; 87631; 94761; 96361; 96374; 96375; 99283; 99284; 99285; J2060; J2405; J7030; J7120; Q9967